=== PATIENT | male | born 1985 | race Caucasian/White ===

== ENCOUNTER 2021-10-29 23:53 | Emergency (ER) | payer MEDICAID ==
[2021-10-29 23:57] VITALS: BP 115/69; PULSE 100; RESP 20; TEMP 99.3
[2021-10-30] MEDS ORDERED: DEXAMETHASONE SOD PHOSPHATE 10 MG/ML 1 ML VIAL IM STA (00:59)
--- NOTE | 2021-10-30 01:03 | ED ---
URI HPI - General Chief Complaint: Upper Respiratory Infection Stated Complaint: Sore throat Time Seen by Provider: 10/30/21 00:32 Source: patient, RN notes reviewed Mode of arrival: ambulatory Limitations: no limitations - History of Present Illness Initial Comments: This is a pleasant 35-year-old male who presents emergency back sore throat, cough, body aches, and sensation shortness of breath which started on Thursday. Patient has been vaccinated against COVID-19 but not the most recent ferry and. Patient is been using [id number] antipyretics. POSITIVE body aches, mild headache, no fever or chills, no changes in vision or hearing, no difficulty with speech, no neck pain, no chest pain, no abdominal pain, no nausea or vomiting, no changes in urination or bowel movements, no numbness or tingling, no extremity pain, no skin rashes or lesions. Past medical, surgical, social, and family history reviewed. - Related Data Previous Rx's Medication Instructions Recorded Amoxicillin 500 mg PO Q8H #30 capsule 02/03/15 predniSONE [Deltasone] 20 mg PO BID #6 tab 02/03/15 traMADol HCl [Ultram] 50 - 100 mg PO Q6H PRN #15 tab 02/03/15 Albuterol Inhaler [Ventolin Hfa 2 puff INHALATION Q4HR PRN #1 each 10/30/21 Inhaler] predniSONE 50 mg PO DAILY #4 tab 10/30/21 Allergies Allergy/AdvReac Type Severity Reaction Status Date / Time No Known Allergies Allergy Verified 10/29/21 23:57 Review of Systems ROS Statement: Those systems with pertinent positive or pertinent negative responses have been documented in the HPI. ROS Other: All systems not noted in ROS Statement are negative. Past Medical History Past Medical History: No Reported History History of Any Multi-Drug Resistant Organisms: None Reported Past Surgical History: No Surgical Hx Reported Past Psychological History: No Psychological Hx Reported Smoking Status: Never smoker Past Alcohol Use History: Occasional Past Drug Use History: None Reported General Exam - General Exam Comments Initial Comments: Patient appears to be mildly ill but not toxic. No respiratory distress or accessory muscle use. Lungs are clear on auscultation. Vital signs stable, patient afebrile. Limitations: no limitations General appearance: alert, in no apparent distress Head exam: Present: atraumatic, normocephalic, normal inspection Eye exam: Present: normal appearance, PERRL, EOMI. Absent: scleral icterus, conjunctival injection, periorbital swelling ENT exam: Present: normal exam, normal oropharynx, mucous membranes moist, normal external ear exam. Absent: mucous membranes dry Neck exam: Present: normal inspection. Absent: tenderness, meningismus, lymphadenopathy Respiratory exam: Present: normal lung sounds bilaterally. Absent: respiratory distress, wheezes, rales, rhonchi, stridor, chest wall tenderness, accessory muscle use Cardiovascular Exam: Present: regular rate, normal rhythm, normal heart sounds. Absent: systolic murmur, diastolic murmur, rubs, gallop, clicks GI/Abdominal exam: Present: soft, normal bowel sounds. Absent: distended, tenderness, guarding, rebound, rigid Extremities exam: Present: normal inspection, full ROM, normal capillary refill. Absent: tenderness, pedal edema, joint swelling, calf tenderness Back exam: Present: normal inspection Neurological exam: Present: alert, oriented X3, CN II-XII intact Psychiatric exam: Present: normal affect, normal mood Skin exam: Present: warm, dry, intact, normal color. Absent: rash Course Vital Signs 10/29/21 23:55 Temperature 99.3 F Pulse Rate 100 Respiratory 20 Rate Blood Pressure 115/69 O2 Sat by Pulse 98 Oximetry - Reevaluation(s) Reevaluation #1: 10/30/21 02:04 Patient in no distress at discharge. No tachypnea. No respiratory distress. Patient vital signs are stable, patient afebrile. Medical Decision Making - Medical Decision Making Patient presents with symptomology consistent with viral upper respiratory infection with cough. Given the patient's symptomology, likely COVID-19. Other viral etiology such as rhinovirus are adenovirus or possible. Patient in no distress. Pulse oximetry 98% on room air. We'll treat with corticosteroids for the patient's cough which she states is quite severe. We'll obtain x-ray, plan for discharge Discussed likelihood of viral etiology with the patient. Patient had body aches, symptoms of upper respiratory infection. No respiratory distress. Chest x-ray was clear. We'll treat conservatively with [id number] medications. I did give him a course of corticosteroids to the patient as he states he has a fairly harsh cough. We discussed the possibility of false negative COVID-19 testing. Patient voiced understanding. Patient was told to return to the ER for any signs or symptoms worsen. Told to return immediately if any other problems arise. All questions answered. Treatment plan discussed. Patient in agreement Every effort has been made to ensure accuracy of this dictation. However, due to the limitations of electronic medical records and dictation devices, errors in charting still occur. Supervising Dr. Lopez - Lab Data Lab Results 10/30/21 Range/Units 01:03 Coronavirus (PCR) Not Detected (Not Detectd) Disposition Clinical Impression: Viral upper respiratory infection, Acute viral syndrome Disposition: HOME SELF-CARE Condition: Good Instructions (If sedation given, give patient instructions): Upper Respiratory Infection (ED), Viral Syndrome (ED) Additional Instructions: Alternate acetaminophen and ibuprofen every 4 hours for fever control and general discomfort. Follow-up with your regular physician as directed. Return to the ER immediately if any symptoms worsen, new symptoms arise, or any other problems develop. You can use the albuterol inhaler 2 puffs every 4 hours as needed for cough or shortness of breath. Prescriptions: predniSONE 50 mg PO DAILY #4 tab Albuterol Inhaler [Ventolin Hfa Inhaler] 2 puff INHALATION Q4HR PRN #1 each PRN Reason: Wheezing Is patient prescribed a controlled substance at d/c from ED?: No Referrals: Wolf Jackson MD [Primary Care Provider] - 1-2 days Time of Disposition: 01:49
--- NOTE | 2021-10-30 01:23 | XR ---
EXAMINATION TYPE: XR chest 1V portable DATE OF EXAM: 10/30/2021 COMPARISON: 03/17/2014 HISTORY: Chest pain TECHNIQUE: Single view FINDINGS: Heart and mediastinum are normal. Lungs are clear. Diaphragm is normal. Bony thorax is inta ct IMPRESSION: Normal chest. No change.
== END 2021-10-30 02:11 | disposition home or self-care (01) ==
LOC: EC 23:53
DX: J06.9 Acute upper respiratory infection, unspecified (principal); Z20.822 Contact with and (suspected) exposure to COVID-19; Z28.311 Partially vaccinated for COVID-19
CPT/HCPCS: 96372 ×2; 99285 ×2; 87635; 71045; J1100

== ENCOUNTER 2023-05-14 22:05 | Inpatient (IN) | payer MEDICAID ==
[2023-05-15 00:45] LABS: Appearance,Urine Clear (Clear); Bilirubin,Urine Negative (Negative); Blood,Urine Negative (Negative); Color,Urine Yellow; Glucose,Urine (UA) Negative (Negative); Ketones,Urine Negative (Negative); Leukocyte Esterase,Urine Negative (Negative); Nitrite,Urine Negative (Negative); PH, Urine 5.5 (5.0-8.0); Protein,Urine Trace (Negative); Specific Gravity,Urine 1.028 (1.001-1.035)
[2023-05-15] MEDS: SODIUM CHLORIDE 0.9% 1,000 ML IV STA (00:58)
[2023-05-15] MEDS: KETOROLAC 15 MG/ML 1 ML VIAL IVP STA (00:58)
[2023-05-15 01:07] LABS: Basophils % (A) 0 %; Eosinophils # (A) 0.2 k/uL (0-0.7); Eosinophils % (A) 1 %; HCT 42.1 % (39.0-53.0); HGB 14.1 gm/dL (13.0-17.5); Lymphocytes # (A) 1.5 k/uL (1.0-4.8); Lymphocytes % (A) 10 %; MCH 29.5 pg (25.0-35.0); MCHC 33.4 g/dL (31.0-37.0); MCV 88.4 fL (80.0-100.0); Mean Platelet Volume 7.6; Monocytes # (A) 0.9 k/uL (0-1.0); Monocytes % (A) 6 %; Neutrophils # (A) 12.5 k/uL (1.3-7.7); Neutrophils % (A) 81 %; Platelet Count 258 k/uL (150-450); RBC 4.77 m/uL (4.30-5.90); WBC 15.4 k/uL (3.8-10.6)
[2023-05-15 01:18] LABS: ALT 36 U/L (4-49); AST 33 U/L (17-59); African American GFR (CKD) >90 (>60 ml/min/1.73 sqM); Alkaline Phosphatase 138 U/L (38-126); Anion Gap 9 mmol/L; Blood Urea Nitrogen 15 mg/dL (9-20); Calcium 8.7 mg/dL (8.4-10.2); Carbon Dioxide 25 mmol/L (22-30); Chloride 101 mmol/L (98-107); Glucose 116 mg/dL (74-99); Non-African American GFR(CKD) 81 (>60 ml/min/1.73 sqM); Potassium 3.6 mmol/L (3.5-5.1); Sodium 135 mmol/L (137-145); Total Bilirubin 0.7 mg/dL (0.2-1.3); Total Protein 6.9 g/dL (6.3-8.2)
--- NOTE | 2023-05-15 01:27 | US ---
EXAMINATION TYPE: US scrotum with doppler. Grayscale and color Doppler Duplex imaging performed of yissel palafox scrotum. DATE OF EXAM: 05/15/2023 COMPARISON: NONE CLINICAL INDICATION: Male, 37 years old with history of swelling and pain; Pt states he attempted to pop a lump on his left scrotum. Swelling and severe pain after attempt EXAM MEASUREMENTS: TESTICLES: Right Testicle: 5.0 x 3.7 x 2.8 cm Left Testicle: 4.0 x 2.6 x 2.1 cm EPIDIDYMIS HEAD: Right Epididymis: 0.8 cm Left Epididymis: 0.8 cm Doppler performed to assess for testicular vascularity; good bilateral color flow and waveforms are s een. Presence of hydroceles: No Presence of varicoceles: Unable to assess due to pt being in too much pain Scrotal wall thickening and hypervascularity near area of lump and swelling waveforms from the testic le. No fluid collection seen. Comparison view at end of study shows symmetric blood flow bilaterally. IMPRESSION: Scrotal soft tissue infection or cellulitis is suspected. No well-formed fluid collection or abscess identified. Symmetric blood flow to both testicles noted.
[2023-05-15] MEDS ORDERED: VANCOMYCIN IV PER PHARMACY 1 EACH MISC MISCELLANE PRN (02:14)
[2023-05-15] MEDS: SODIUM CHLORIDE 0.9% 2,000 ML IV STA (02:14)
--- NOTE | 2023-05-15 02:20 | ED ---
General Adult HPI - General Chief complaint: Urogenital Stated complaint: groin pain Time Seen by Provider: 05/14/23 23:50 Source: patient Mode of arrival: ambulatory Limitations: no limitations - History of Present Illness Initial comments: 37-year-old male presenting to the ED with a chief complaint of scrotal swelling. Patient reports 2 to 3 days ago thought what he had was a pimple on his left scrotum and attempted to pop this. Reports that he has had gradual increases of pain and swelling since then and reports overnight it seems to tripled in size prompting presentation to the ED for further evaluation. Also does note some chills and subjective fever. Denies concerns for STDs. Denies urinary complaints. No abdominal pain. No changes in bowel habits. No chest pain or shortness of breath. No other complaints at this time. - Related Data Previous Rx's Medication Instructions Recorded Amoxicillin 500 mg PO Q8H #30 capsule 02/03/15 predniSONE [Deltasone] 20 mg PO BID #6 tab 02/03/15 traMADol HCl [Ultram] 50 - 100 mg PO Q6H PRN #15 tab 02/03/15 Albuterol Inhaler [Ventolin Hfa 2 puff INHALATION Q4HR PRN #1 each 10/30/21 Inhaler] predniSONE 50 mg PO DAILY #4 tab 10/30/21 Allergies Allergy/AdvReac Type Severity Reaction Status Date / Time No Known Allergies Allergy Verified 05/14/23 22:11 Review of Systems ROS Statement: Those systems with pertinent positive or pertinent negative responses have been documented in the HPI. ROS Other: All systems not noted in ROS Statement are negative. Past Medical History Past Medical History: No Reported History History of Any Multi-Drug Resistant Organisms: None Reported Past Surgical History: No Surgical Hx Reported Past Psychological History: No Psychological Hx Reported Smoking Status: Never smoker Past Alcohol Use History: Occasional Past Drug Use History: None Reported General Exam Limitations: no limitations General appearance: alert Eye exam: Present: normal appearance Neck exam: Present: normal inspection Respiratory exam: Present: normal lung sounds bilaterally Cardiovascular Exam: Present: tachycardia GI/Abdominal exam: Present: soft, normal bowel sounds. Absent: distended, tenderness, guarding, rebound, rigid exam: Present: other (Scrotal exam performed. There was no crepitus. The significant swelling of the scrotum with warmth and some erythema. Excoriation/scab to the left scrotum.) Neurological exam: Present: alert, oriented X3 Skin exam: Present: diaphoretic Course Vital Signs 05/14/23 05/14/23 05/15/23 22:07 23:22 00:31 Temperature 98.2 F Pulse Rate 123 H 119 H 117 H Respiratory 18 24 22 Rate Blood Pressure 118/76 140/93 132/80 O2 Sat by Pulse 100 100 100 Oximetry 05/15/23 05/15/23 01:00 02:21 Temperature 101.1 F H Pulse Rate 117 H 110 H Respiratory 20 18 Rate Blood Pressure 132/91 119/79 O2 Sat by Pulse 97 100 Oximetry Medical Decision Making - Medical Decision Making Was pt. sent in by a medical professional or institution ([facility], CASE LINER, urgent care, hospital, or detention...) When possible be specific @ -No Did you speak to anyone other than the patient for history (EMS, parent, family, police, friend...)? What history was obtained from this source @ -No Did you review nursing and triage notes (agree or disagree)? Why? @ -I reviewed and agree with nursing and triage notes Were old charts reviewed (outside hosp., previous admission, EMS record, old E KG, old radiological studies, urgent care reports/EKG's, detention records)? Report findings @ -No old charts were reviewed Differential Diagnosis (chest pain, altered mental status, abdominal pain women, abdominal pain men, vaginal bleeding, weakness, fever, dyspnea, syncope, headache, dizziness, GI bleed, back pain, seizure, CVA, palpatations, mental health, musculoskeletal)? @ -Differential Musculoskeletal Muscular strain, contusion, ligament sprain, fracture, arthritis, septic arthritis, bursitis, cellulitis, muscle spasm, nerve compression, DVT, arterial occlusion, herpes zoster, electrolyte abnormality, tumor.... This is not meant to be in all inclusive list EKG interpreted by me (3pts min.). @ -None X-rays interpreted by me (1pt min.). @ -None done CT interpreted by me (1pt min.). @ -None done U/S interpreted by me (1pt. min.). @ -Ultrasound interpreted me which showed some scrotal soft tissue infection with cellulitis suspected. No well-formed fluid collection or abscess identified. Symmetric blood flow to both testicles. What testing was considered but not performed or refused? (CT, X-rays, U/S, labs)? Why? @ -None What meds were considered but not given or refused? Why? @ -None Did you discuss the management of the patient with other professionals (professionals i.e. , PA, CASE LINER, lab, RT, psych nurse, social media sr strategy manager, claim investigator, teacher, probation officer, business case analyst)? Give summary @ -Case will be discussed with Dr. Shoemaker for consultation Case will be discussed with Dr. Purcell for admission Was smoking cessation discussed for >3mins.? @ -No Was critical care preformed (if so, how long)? @ -Yes, 35 minutes Were there social determinants of health that impacted care today? How? (Homelessness, low income, unemployed, alcoholism, drug addiction, tra nsportation, low edu. Level, literacy, decrease access to med. care, snf, rehab)? @ -No Was there de-escalation of care discussed even if they declined (Discuss DNR or withdrawal of care, Hospice)? DNR status @ -No What co-morbidities impacted this encounter? (DM, HTN, Smoking, COPD, CAD, Cancer, CVA, ARF, Chemo, Hep., AIDS, mental health diagnosis, sleep apnea, morbid obesity)? @ -None Was patient admitted / discharged? Hospital course, mention meds given and route, prescriptions, significant lab abnormalities, going to OR and other pertinent info. @ -Admission 37-year-old male presenting to the ED with complaints of scrotal swelling. On exam there is significant scrotal swelling with warmth and erythema concerning for infection. There was no crepitus upon palpation. Ultrasound did show findings concerning for soft tissue suspension. No fluid collection seen. No gas was mentioned on the ultrasound read. Laboratory studies reviewed. CBC significant for an elevation of white blood cell count at 15.4. Chemistry panel unremarkable. Urinalysis unremarkable. Patient met SIRS criteria at 00:59. Patient was given a liter bolus upon arrival. Patient also given an additional 2 L bolus with this. Antibiotics were ordered at 2:15 AM. Patient will be admitted secondary to this cellulitis with consult to urology. Blood cultures obtained. Undiagnosed new problem with uncertain prognosis? @ -No Drug Therapy requiring intensive monitoring for toxicity (Heparin, Nitro, Insulin, Cardizem)? @ -No Were any procedures done? @ -No Diagnosis/symptom? @ -Scrotal cellulitis, sepsis Acute, or Chronic, or Acute on Chronic? @ -Acute Uncomplicated (without systemic symptoms) or Complicated (systemic symptoms)? @ -Complicated Side effects of treatment? @ -No Exacerbation, Progression, or Severe Exacerbation? @ -No Poses a threat to life or bodily function? How? (Chest pain, USA, PA, pneumonia, PE, COPD, DKA, ARF, appy, cholecystitis, CVA, Diverticulitis, Homicidal, S uicidal, threat to staff... and all critical care pts) @ -No - Lab Data Result diagrams: 05/15/23 00:48 05/15/23 00:48 Lab Results 05/14/23 05/15/23 05/15/23 Range/Units 22:42 00:48 00:48 WBC 15.4 H (3.8-10.6) k/uL RBC 4.77 (4.30-5.90) m/uL Hgb 14.1 (13.0-17.5) gm/dL Hct 42.1 (39.0-53.0) % MCV 88.4 (80.0-100.0) fL MCH 29.5 (25.0-35.0) pg MCHC 33.4 (31.0-37.0) g/dL RDW 13.0 (11.5-15.5) % Plt Count 258 (150-450) k/uL MPV 7.6 Neutrophils % 81 % Lymphocytes % 10 % Monocytes % 6 % Eosinophils % 1 % Basophils % 0 % Neutrophils # 12.5 H (1.3-7.7) k/uL Lymphocytes # 1.5 (1.0-4.8) k/uL Monocytes # 0.9 (0-1.0) k/uL Eosinophils # 0.2 (0-0.7) k/uL Basophils # 0.0 (0-0.2) k/uL Sodium 135 L (137-145) mmol/L Potassium 3.6 (3.5-5.1) mmol/L Chloride 101 (98-107) mmol/L Carbon Dioxide 25 (22-30) mmol/L Anion Gap 9 mmol/L BUN 15 (9-20) mg/dL Creatinine 1.14 (0.66-1.25) mg/dL Est GFR (CKD-EPI)AfAm >90 (>60 ml/min/1.73 sqM) Est GFR (CKD-EPI)NonAf 81 (>60 ml/min/1.73 sqM) Glucose 116 H (74-99) mg/dL Calcium 8.7 (8.4-10.2) mg/dL Total Bilirubin 0.7 (0.2-1.3) mg/dL AST 33 (17-59) U/L ALT 36 (4-49) U/L Alkaline Phosphatase 138 H (38-126) U/L Total Protein 6.9 (6.3-8.2) g/dL Albumin 4.0 (3.5-5.0) g/dL Urine Color Yellow Urine Appearance Clear (Clear) Urine pH 5.5 (5.0-8.0) Ur Specific [place] 1.028 (1.001-1.035) Urine Protein Trace H (Negative) Urine Glucose (UA) Negative (Negative) Urine Ketones Negative (Negative) Urine Blood Negative (Negative) Urine Nitrite Negative (Negative) Urine Bilirubin Negative (Negative) Urine Urobilinogen 2.0 (<2.0) mg/dL Ur Leukocyte Esterase Negative (Negative) Disposition Clinical Impression: Cellulitis of scrotum Disposition: ADMITTED IP TO THIS HOSP Condition: Fair Referrals: Wolf Jackson MD [Primary Care Provider] - 1-2 days Time of Disposition: 02:31
[2023-05-15] MEDS: ACETAMINOPHEN TAB 500 MG TAB PO STA (02:23)
[2023-05-15] MEDS: ONDANSETRON 4 MG/2 ML VIAL IVP STA (02:25)
[2023-05-15] MEDS: MORPHINE SULFATE 4 MG/ML SYRINGE IVP STA (02:28)
[2023-05-15] MEDS: PIPERACILLIN-TAZOBACTAM 3.375 GM in SODIUM CHLORIDE 0.9% 100 ML IVPB STA (02:31)
[2023-05-15] MEDS ORDERED: IBUPROFEN 400 MG TAB PO PRN (02:32)
[2023-05-15] MEDS ORDERED: ONDANSETRON 4 MG/2 ML VIAL IVP PRN (02:32)
[2023-05-15] MEDS ORDERED: NALOXONE 0.4 MG/ML 1 ML VIAL IV PRN (02:32)
--- NOTE | 2023-05-15 02:59 | CT ---
EXAMINATION TYPE: CT pelvis w con DATE OF EXAM: 05/15/2023 COMPARISON: Same date scrotal ultrasound HISTORY: LEFT TESTICULAR PAIN, PATIENT HAD AN INGROWN HAIR/PIMPLE/MASS HE TRIED TO POP THAT HAS GROIN LARGER OVER TIME CT DLP: 1607.6 mGycm Automated exposure control for dose reduction was used. CONTRAST: Performed with IV Contrast, patient injected with 100 mL of Isovue 300. FINDINGS: Abnormal skin thickening and diffuse edema along the inferior aspect of the left scrotum correlates w ith ultrasound seen best coronal image 27. No thick walled fluid collection or drainable abscess. Lef t testicle slightly smaller than right testicle. Findings correlate with ultrasound measurements. Ernestine ticles remain well defined. Prostate gland is normal in size. Urinary bladder is unremarkable. Normal-appearing appendix from cec um is seen. No abnormal bowel dilatation. No free fluid in the pelvis. Visualized osseous structures are intact. IMPRESSION: As above.
[2023-05-15] MEDS: VANCOMYCIN 1,750 MG in SODIUM CHLORIDE 0.9% 500 ML 500 ML IVPB STA (04:47)
[2023-05-15] MEDS: SODIUM CHLORIDE 0.9% 1,000 ML IV SCH (04:47)
[2023-05-15] MEDS: HYDROmorphone 1 MG/ML 1 ML SYRINGE IVP PRN ×2 (07:10→20:53)
[2023-05-15 07:42] LABS: Glucose,Whole Blood 93 mg/dL (70-110)
[2023-05-15] MEDS: LACTATED RINGERS 1,000 ML IV ONE ×5 (08:00→10:01)
[2023-05-15 08:02] LABS: Basophils % (A) 0 %; Eosinophils % (A) 1 %; Lymphocytes # (A) 0.9 k/uL (1.0-4.8); Lymphocytes % (A) 14 %; MCH 29.4 pg (25.0-35.0); MCHC 32.5 g/dL (31.0-37.0); MCV 90.5 fL (80.0-100.0); Mean Platelet Volume 7.7; Monocytes # (A) 0.4 k/uL (0-1.0); Monocytes % (A) 7 %; Neutrophils # (A) 5.1 k/uL (1.3-7.7); Neutrophils % (A) 78 %; RDW 13.2 % (11.5-15.5)
[2023-05-15 08:08] LABS: INR 1.4 (<1.2); Prothrombin Time 14.9 sec (10.0-12.5)
[2023-05-15 08:11] LABS: African American GFR (CKD) >90 (>60 ml/min/1.73 sqM); Anion Gap 12 mmol/L; Blood Urea Nitrogen 7 mg/dL (9-20); Calcium 6.8 mg/dL (8.4-10.2); Carbon Dioxide 10 mmol/L (22-30); Chloride 107 mmol/L (98-107); Glucose 53 mg/dL (74-99); Non-African American GFR(CKD) >90 (>60 ml/min/1.73 sqM); Sodium 129 mmol/L (137-145)
[2023-05-15 08:30] LABS: Glucose,Whole Blood 81 mg/dL (70-110)
--- NOTE | 2023-05-15 08:36 | P.GSCN ---
History of Present Illness Consult date: 05/15/23 Reason for Consult: Left scrotal cellulitis History of present illness: This is a 37-year-old male that presented to the hospital with left-sided scrotal cellulitis that has been progressing over the past 24 hours. He initially noticed a small pimple in his scrotum which he opened up approximately 2 days ago following that he noticed swelling and erythema involving the scrotum that has progressively gotten worse. He indicated over the past 24 hours it has more than tripled in size. It is associated with significant amount of pain associated with fevers and chills. Denies any urinary symptoms. Denies any previous scrotal surgeries. In the ER he underwent CT pelvis that showed evidence of significant left scrotal edema, no appreciable abscess was seen. Review of Systems - Constitutional Reports chills, Reports fatigue, Reports fever, Reports malaise - Cardiovascular Denies chest pain, Denies shortness of breath - Respiratory Denies cough, Denies 7 - Gastrointestinal Reports as per HPI - Genitourinary Reports genital pain, Denies dysuria, Denies hematuria - Integumentary Denies rash, Denies unusual bruising - Neurological Denies headaches, Denies syncope Past Medical History Past Medical History: No Reported History History of Any Multi-Drug Resistant Organisms: None Reported Past Surgical History: No Surgical Hx Reported Past Psychological History: No Psychological Hx Reported Smoking Status: Never smoker Past Alcohol Use History: Occasional Past Drug Use History: None Reported Medications and Allergies Home Medications Medication Instructions Recorded Confirmed Type No Known Home Medications 05/15/23 05/15/23 History Allergies Allergy/AdvReac Type Severity Reaction Status Date / Time No Known Allergies Allergy Verified 05/15/23 07:46 Surgical - Exam Vital Signs Temp Pulse Resp BP Pulse Ox 98.2 F 123 H 18 118/76 100 05/14/23 22:07 05/14/23 22:07 05/14/23 22:07 05/14/23 22:07 05/14/23 22:07 - General no distress, moderate pain - Eyes normal ocular movement, no pale - ENT normal nares, normal mucosa - Respiratory normal expansion, normal respiratory effort - Abdomen Abdomen: soft, non tender - Genitourinary Significant left scrotal wall edema and tenderness, a focal area of necrotic tissue with fluctuance along the lateral aspect of the 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 No involvement of the penile tissue or abdominal tissue. Results - Labs 05/15/23 07:50 05/15/23 07:50 Abnormal Lab Results - Last 24 Hours (Table) 05/14/23 05/15/23 05/15/23 Range/Units 22:42 00:48 00:48 WBC 15.4 H (3.8-10.6) k/uL RBC (4.30-5.90) m/uL Hgb (13.0-17.5) gm/dL Hct (39.0-53.0) % Plt Count (150-450) k/uL Neutrophils # 12.5 H (1.3-7.7) k/uL PT (10.0-12.5) sec INR (<1.2) Sodium 135 L (137-145) mmol/L Carbon Dioxide (22-30) mmol/L BUN (9-20) mg/dL Creatinine (0.66-1.25) mg/dL Glucose 116 H (74-99) mg/dL Plasma Lactic Acid Sancho (0.7-2.0) mmol/L Calcium (8.4-10.2) mg/dL Alkaline Phosphatase 138 H (38-126) U/L Urine Protein Trace H (Negative) 05/15/23 05/15/23 05/15/23 Range/Units 07:50 07:50 07:50 WBC (3.8-10.6) k/uL RBC 2.53 L (4.30-5.90) m/uL Hgb 7.5 L D (13.0-17.5) gm/dL Hct 22.9 L (39.0-53.0) % Plt Count 129 L (150-450) k/uL Neutrophils # (1.3-7.7) k/uL PT 14.9 H (10.0-12.5) sec INR 1.4 H (<1.2) Sodium 129 L (137-145) mmol/L Carbon Dioxide 10 L (22-30) mmol/L BUN 7 L (9-20) mg/dL Creatinine 0.50 L (0.66-1.25) mg/dL Glucose 53 L (74-99) mg/dL Plasma Lactic Acid Sancho (0.7-2.0) mmol/L Calcium 6.8 L (8.4-10.2) mg/dL Alkaline Phosphatase (38-126) U/L Urine Protein (Negative) 05/15/23 Range/Units 07:50 WBC (3.8-10.6) k/uL RBC (4.30-5.90) m/uL Hgb (13.0-17.5) gm/dL Hct (39.0-53.0) % Plt Count (150-450) k/uL Neutrophils # (1.3-7.7) k/uL PT (10.0-12.5) sec INR (<1.2) Sodium (137-145) mmol/L Carbon Dioxide (22-30) mmol/L BUN (9-20) mg/dL Creatinine (0.66-1.25) mg/dL Glucose (74-99) mg/dL Plasma Lactic Acid Sancho 14.5 H* (0.7-2.0) mmol/L Calcium (8.4-10.2) mg/dL Alkaline Phosphatase (38-126) U/L Urine Protein (Negative) Diabetes panel 05/15/23 05/15/23 Range/Units 00:48 07:50 Sodium 135 L 129 L (137-145) mmol/L Potassium 3.6 4.0 (3.5-5.1) mmol/L Chloride 101 107 (98-107) mmol/L Carbon Dioxide 25 10 L (22-30) mmol/L BUN 15 7 L (9-20) mg/dL Creatinine 1.14 0.50 L (0.66-1.25) mg/dL Glucose 116 H 53 L (74-99) mg/dL Calcium 8.7 6.8 L (8.4-10.2) mg/dL AST 33 (17-59) U/L ALT 36 (4-49) U/L Alkaline Phosphatase 138 H (38-126) U/L Total Protein 6.9 (6.3-8.2) g/dL Albumin 4.0 (3.5-5.0) g/dL Calcium panel 05/15/23 05/15/23 Range/Units 00:48 07:50 Calcium 8.7 6.8 L (8.4-10.2) mg/dL Albumin 4.0 (3.5-5.0) g/dL Pituitary panel 05/15/23 05/15/23 Range/Units 00:48 07:50 Sodium 135 L 129 L (137-145) mmol/L Potassium 3.6 4.0 (3.5-5.1) mmol/L Chloride 101 107 (98-107) mmol/L Carbon Dioxide 25 10 L (22-30) mmol/L BUN 15 7 L (9-20) mg/dL Creatinine 1.14 0.50 L (0.66-1.25) mg/dL Glucose 116 H 53 L (74-99) mg/dL Calcium 8.7 6.8 L (8.4-10.2) mg/dL Adrenal panel 05/15/23 05/15/23 Range/Units 00:48 07:50 Sodium 135 L 129 L (137-145) mmol/L Potassium 3.6 4.0 (3.5-5.1) mmol/L Chloride 101 107 (98-107) mmol/L Carbon Dioxide 25 10 L (22-30) mmol/L BUN 15 7 L (9-20) mg/dL Creatinine 1.14 0.50 L (0.66-1.25) mg/dL Glucose 116 H 53 L (74-99) mg/dL Calcium 8.7 6.8 L (8.4-10.2) mg/dL Total Bilirubin 0.7 (0.2-1.3) mg/dL AST 33 (17-59) U/L ALT 36 (4-49) U/L Alkaline Phosphatase 138 H (38-126) U/L Total Protein 6.9 (6.3-8.2) g/dL Albumin 4.0 (3.5-5.0) g/dL Assessment and Plan Assessment: This is a 37-year-old male that presented to the hospital with significant left- sided scrotal swelling, and 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 Patient is febrile, tachycardic and elevated white count. Discussed discussed given the exam finding and his vital signs I do recommend proceeding to the OR with incision and drainage and debridement of the involved tissue. Risk benefit and rationale of the surgery was discussed with him and his in details -Keep n.p.o. -OR for left-sided scrotal wall debridement and incision and drainage of scrotal wall abscess
[2023-05-15] MEDS ORDERED: LIDOCAINE 1% INJ 10MG/ML (20 ML MDV) ONE (08:50)
[2023-05-15] MEDS ORDERED: PROPOFOL 10 MG/ML 20 ML VIAL IV ONE (08:50)
[2023-05-15] MEDS ORDERED: ETOMIDATE 2 MG/ML 10 ML VIAL ONE (08:50)
[2023-05-15] MEDS ORDERED: ROCURONIUM 10 MG/ML (5 ML VIAL) IV ONE (08:50)
[2023-05-15] MEDS ORDERED: KETAMINE HCL IN 0.9 % NACL 50 MG/5 ML SYRINGE ONE (08:50)
[2023-05-15] MEDS ORDERED: SUCCINYLCHOLINE CHLORIDE 200 MG/10 ML VIAL IV ONE (08:50)
[2023-05-15] MEDS ORDERED: MIDAZOLAM 2 MG/2 ML VIAL ONE (08:50)
[2023-05-15] MEDS ORDERED: fentaNYL (PF) 50 MCG/ML 2 ML AMP ONE (08:50)
[2023-05-15 09:25] LABS: HGB 7.5 gm/dL (13.0-17.5); RBC 2.53 m/uL (4.30-5.90); WBC 6.5 k/uL (3.8-10.6)
[2023-05-15 09:26] LABS: HCT 22.9 % (39.0-53.0); Platelet Count 129 k/uL (150-450)
[2023-05-15] MEDS: SODIUM CHLORIDE 0.9% 1,000 ML IV ONE (10:02)
[2023-05-15] MEDS: PIPERACILLIN-TAZOBACTAM 3.375 GM in SODIUM CHLORIDE 0.9% 100 ML IVPB SCH (10:36)
[2023-05-15 10:45] LABS: ABG Base Excess -1.6 mmol/L; ABG HCO3 24 mmol/L (21-25); ABG Oxygen Saturation 99.7 % (94-97); ABG PCO2 41 mmHg (35-45); ABG PH 7.37 (7.35-7.45); ABG PO2 214 mmHg (83-108); ABG TCO2 25 mmol/L (19-24); Allen Test Performed? Yes
--- NOTE | 2023-05-15 11:33 | XR ---
EXAMINATION TYPE: XR chest 1V portable DATE OF EXAM: 05/15/2023 10:34 AM CLINICAL INDICATION:Male, 37 years old with history of Tube placement; [facility] COMPARISON: Chest radiographs from 10/30/2021. TECHNIQUE: XR chest 1V portable Frontal view of the chest. FINDINGS: Lungs/Pleura: There is no evidence of pleural effusion, focal consolidation, or pneumothorax. Pulmonary vascularity: Unremarkable. Heart/mediastinum: Cardiomediastinal silhouette is unremarkable. Musculoskeletal: No acute osseous pathology. Other findings: None Lines/Tubes: Endotracheal tube with distal tip 3.3 cm above the chi. Nasogastric tube with its distal tip and side-port projecting under the diaphragm and projecting over the gastric lumen. Right internal jugular central venous catheter with distal tip at the cavoatrial junction. IMPRESSION: Line and tubes in appropriate position.
[2023-05-15] MEDS: ACETAMINOPHEN TAB 325 MG TAB PO PRN (11:45)
[2023-05-15 11:55] LABS: Appearance,Urine Clear (Clear); Bilirubin,Urine Negative (Negative); Blood,Urine Negative (Negative); Color,Urine Yellow; Glucose,Urine (UA) Negative (Negative); Ketones,Urine Negative (Negative); Leukocyte Esterase,Urine Negative (Negative); Nitrite,Urine Negative (Negative); Protein,Urine Negative (Negative); Specific Gravity,Urine 1.023 (1.001-1.035)
[2023-05-15 11:56] LABS: Glucose,Whole Blood 91 mg/dL (70-110)
[2023-05-15 11:57] LABS: Basophils % (A) 0 %; Eosinophils # (A) 0.1 k/uL (0-0.7); Eosinophils % (A) 1 %; HCT 34.2 % (39.0-53.0); Lymphocytes # (A) 1.7 k/uL (1.0-4.8); Lymphocytes % (A) 15 %; MCH 29.4 pg (25.0-35.0); MCHC 32.5 g/dL (31.0-37.0); MCV 90.4 fL (80.0-100.0); Mean Platelet Volume 7.9; Monocytes # (A) 0.6 k/uL (0-1.0); Monocytes % (A) 5 %; Neutrophils # (A) 8.7 k/uL (1.3-7.7); Neutrophils % (A) 78 %; RBC 3.79 m/uL (4.30-5.90); RDW 13.1 % (11.5-15.5); WBC 11.2 k/uL (3.8-10.6)
[2023-05-15 11:59] LABS: HGB 11.1 gm/dL (13.0-17.5); Platelet Count 194 k/uL (150-450)
[2023-05-15] MEDS: VANCOMYCIN 1,750 MG in SODIUM CHLORIDE 0.9% 500 ML 500 ML IVPB SCH (13:27)
--- NOTE | 2023-05-15 13:33 | P.OP ---
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 Discussed given the evidence of progression on exam I do recommend proceeding with surgical debridement in the OR. This was discussed with him and his in details. Patient was tachycardic, and febrile at time of taking him back to the OR. Discussed risk and benefit and rationale of doing the surgery with him in details. Discussed potential of needing additional debridements, and potentially eventual requiring further therapy. They understood all the risk and agreed to proceed Description of Procedure: Patient brought to the operating room, general anesthesia was induced. He was prepped and draped in sterile fashion placed in a dorsolithotomy position. Left scrotal was palpated and there was area of black necrotic tissue along the left scrotum that measured approximately 3 x 2 cm additionally at the remainder of the left scrotal wall was edematous and quite indurated. Next the necrotic was excised off, there was no evidence of bleeding after removing the necrotic area. Next tissue was resected down, the majority of the left scrotal wall skin was excised, and the medial aspect of the right scrotal wall was also excised. Excision was taken until healthy bleeding was encountered. There was no involvement of the penile skin, the pubic area or the rectum. Total area of resection was approximately 10 x 15 cm. Scrotal wall around the left testicle was removed but the testicle was covered with tunica vaginalis, as there was no involvement of the tunica vaginalis. Areas of bleeding were controlled with cautery. A 16 Ukrainian Armstrong was placed with return of clear urine. There was no involvement of the urethra or periurethral tic tissue, the wound was irrigated with sempulse glove printer. Kerlix was used to wrap around the left testicle, and the remainder of the incision. Patient was taken to the ICU in guarded but hemodynamically stable condition. Patient remained intubated
[2023-05-15] MEDS ORDERED: SODIUM FERRIC GLUCONAT-SUCROSE 125 MG in SODIUM CHLORIDE 0.9% 100 ML IVPB SCH (14:00)
--- NOTE | 2023-05-15 14:01 | P.HPIM ---
History of Present Illness H&P Date: 05/15/23 Chief Complaint: Scrotal swelling This is a 37-year-old patient, follows Dr. Calos Jackson. Pretty healthy and unremarkable past medical history. Patient presented to the ER with scrotal swelling. He reported to have 2 to 3 days ago what you thought was a pimple on his left scrotum and he attempted to pop it. It gradually became worse and pain swelling and overnight tripled in size. Is also had some complaint of fever and chills. Patient in the ER was given IV fluids IV Zosyn. And IV vancomycin. Patient is moved to the medical floor, where he was more septic. And taken to the OR. Black necrotic tissue along the left scrotum was noted. And the wall was edematous and indurated. It was excised. In the medial aspect of the right scrotal wall was also excised. The penis in the pubic area of the rectum was not involved. Total area resected was 10 x 15 cm. Scrotal wall around the left testicle was removed but testicle was covered with the tunica vaginalis. This was not involved. No involvement of the urethra or peritoneal utricle tissue. Patient was intubated in the OR. Then moved to the ICU. Received 5 L of fluid during the procedure. Currently intubated with FiO2 60 and a PEEP of 5. Patient's mother at the bedside. On IV propofol Review of systems: Patient intubated Social history: . Does not smoke or drink alcohol. Works as a [employer]. Physical examination: VITAL SIGNS: 101.1, 117, 20, 132 x 91, 97% room air overnight GENERAL: BMI 30.6, laying in bed intubated. EYES: Pupils equal. Conjunctiva luigi l. HEENT: External appearance of nose and ears normal, oral cavity grossly normal. NECK: JVD not raised; masses not palpable. HEART: First and second heart sounds are normal; no edema. LUNGS: Respiratory rate normal; clear to auscultation. ABDOMEN: Soft, nontender, liver spleen not palpable, no masses palpable. Dressing over the scrotum with the support. Armstrong catheter. PSYCH: Patient sedated l. MUSCULOSKELETAL:No Clubbing/cyanosis;muscles-grossly intact NEUROLOGICAL: Cranial nerves grossly intact; no facial asymmetry, power and sensation grossly intact. LYMPHATICS: No lymph nodes palpable in the axilla and neck INVESTIGATIONS, reviewed in the clinical context: May 15, 2023: White count 9.2 hemoglobin 11.1 platelets 194 May 15, 2023: White count 15.4 hemoglobin 14.1 platelets 258 potassium 3.6 creatinine 1.14 lactic acid 1.4 then went up to 14.5 Scrotum ultrasound scrotal soft tissue infection//suspected no obvious fluid filled collection. Pelvic CT: Testicles remain well-defined. Thickening of the left scrotal wall. Chest x-ray film personally reviewed by me-unremarkable Assessment plan: -Acute left scrotal skin necrosis resulting initially from a pimple that was popped by the patient 2 to 3 days prior to presentation. Resulting in necrotic tissue sepsis. Surgical excision of the infected tissue. IV vancomycin. IV Zosyn. -Acute respiratory failure requiring ventilator support -Lactic acidosis secondary to sepsis -Hyponatremia decreased oral intake -Acute postprocedure blood loss anemia expected from surgery. Reported of EBL of 200 cc. IV Ferrlecit Patient ICU. IV fluids. Intubated. Discussed with mother at the bedside. Nursing informed me that patient probably be taken back to the OR on Thursday again by Dr. Shoemaker. Past Medical History Past Medical History: No Reported History History of Any Multi-Drug Resistant Organisms: None Reported Past Surgical History: No Surgical Hx Reported Past Psychological History: No Psychological Hx Reported Smoking Status: Never smoker Past Alcohol Use History: Occasional Past Drug Use History: None Reported - Past Family History Father Family Medical History: No Reported History Mother Family Medical History: Cancer, Coronary Artery Disease (CAD), Thyroid Disorder Medications and Allergies Home Medications Medication Instructions Recorded Confirmed Type No Known Home Medications 05/15/23 05/15/23 History Allergies Allergy/AdvReac Type Severity Reaction Status Date / Time No Known Allergies Allergy Verified 05/15/23 07:46 Physical Exam Vitals: Vital Signs Temp Pulse Pulse Resp BP BP Pulse Ox 05/15/23 09:38 05/15/23 08:31 116 H 28 H 134/84 100 05/15/23 08:18 114 H 34 H 137/79 100 05/15/23 08:02 100.3 F H 110 H 16 133/74 100 05/15/23 07:30 100 20 110/60 98 05/15/23 05:13 101 H 16 104/54 95 05/15/23 03:00 101 F H 113 H 18 114/69 99 05/15/23 02:21 110 H 18 119/79 100 05/15/23 01:00 101.1 F H 117 H 20 132/91 97 05/15/23 00:31 117 H 22 132/80 100 05/14/23 23:22 119 H 24 140/93 100 05/14/23 22:07 98.2 F 123 H 18 118/76 100 FiO2 05/15/23 09:38 100 05/15/23 08:31 05/15/23 08:18 05/15/23 08:02 05/15/23 07:30 05/15/23 05:13 05/15/23 03:00 05/15/23 02:21 05/15/23 01:00 05/15/23 00:31 05/14/23 23:22 05/14/23 22:07 Intake and Output 05/14/23 05/15/23 05/15/23 22:59 06:59 14:59 Intake Total 5500 Output Total 700 Balance 4800 Intake: IV 5500 Output: Urine 500 Estimated Blood Loss 200 Other: Weight 113.852 kg Results CBC & Chem 7: 05/15/23 11:39 05/15/23 07:50 Labs: Abnormal Lab Results - Last 24 Hours (Table) 05/14/23 05/15/23 05/15/23 Range/Units 22:42 00:48 00:48 WBC 15.4 H (3.8-10.6) k/uL RBC (4.30-5.90) m/uL Hgb (13.0-17.5) gm/dL Hct (39.0-53.0) % Plt Count (150-450) k/uL Neutrophils # 12.5 H (1.3-7.7) k/uL Lymphocytes # (1.0-4.8) k/uL PT (10.0-12.5) sec INR (<1.2) Sodium 135 L (137-145) mmol/L Carbon Dioxide (22-30) mmol/L BUN (9-20) mg/dL Creatinine (0.66-1.25) mg/dL Glucose 116 H (74-99) mg/dL Plasma Lactic Acid Sancho (0.7-2.0) mmol/L Calcium (8.4-10.2) mg/dL Alkaline Phosphatase 138 H (38-126) U/L Urine Protein Trace H (Negative) 05/15/23 05/15/23 05/15/23 Range/Units 07:50 07:50 07:50 WBC (3.8-10.6) k/uL RBC 2.53 L (4.30-5.90) m/uL Hgb 7.5 L D (13.0-17.5) gm/dL Hct 22.9 L (39.0-53.0) % Plt Count 129 L (150-450) k/uL Neutrophils # (1.3-7.7) k/uL Lymphocytes # 0.9 L (1.0-4.8) k/uL PT 14.9 H (10.0-12.5) sec INR 1.4 H (<1.2) Sodium 129 L (137-145) mmol/L Carbon Dioxide 10 L (22-30) mmol/L BUN 7 L (9-20) mg/dL Creatinine 0.50 L (0.66-1.25) mg/dL Glucose 53 L (74-99) mg/dL Plasma Lactic Acid Sancho (0.7-2.0) mmol/L Calcium 6.8 L (8.4-10.2) mg/dL Alkaline Phosphatase (38-126) U/L Urine Protein (Negative) 05/15/23 Range/Units 07:50 WBC (3.8-10.6) k/uL RBC (4.30-5.90) m/uL Hgb (13.0-17.5) gm/dL Hct (39.0-53.0) % Plt Count (150-450) k/uL Neutrophils # (1.3-7.7) k/uL Lymphocytes # (1.0-4.8) k/uL PT (10.0-12.5) sec INR (<1.2) Sodium (137-145) mmol/L Carbon Dioxide (22-30) mmol/L BUN (9-20) mg/dL Creatinine (0.66-1.25) mg/dL Glucose (74-99) mg/dL Plasma Lactic Acid Sancho 14.5 H* (0.7-2.0) mmol/L Calcium (8.4-10.2) mg/dL Alkaline Phosphatase (38-126) U/L Urine Protein (Negative) Thrombosis Risk Factor Assmnt - Choose All That Apply Each Factor Represents 1 point: Minor surgery planned, Sepsis (< 1month) Other Risk Factors: Yes Thrombosis Risk Factor Assessment Total Risk Factor Score: 2 Thrombosis Risk Factor Assessment Level: Low Risk
--- NOTE | 2023-05-15 14:23 | P.CNPUL ---
History of Present Illness Consult date: 05/15/23 Requesting physician: Easton Shoemaker Reason for consult: other (Ventilator/critical care management) Chief complaint: Left scrotal pain and redness History of present illness: This is a 37-year-old male patient with no significant medical history. He presented here to the emergency room late last night with complaints of scrotal swelling. He reported a 2 to 3-day history of what he thought was a pimple on his left scrotum attempted to pop it. Since then he had increased swelling pain and developed some fever and chills. Scrotal ultrasound revealed soft tissue infection or cellulitis suspected. No well-formed fluid collection or abscess identified. CT scan of the pelvis revealed abnormal skin thickening and diffuse edema along the inferior aspect of the left scrotum. No thick walled fluid collection or drainable abscess. Left testicle slightly smaller than right. White count 11.2. Hemoglobin 11.1. Sodium 129. Potassium 4.0. Bicarb 10. BUN 7. Creatinine 0.53. Glucose 53. Initial lactic acid 14.5. He received 4- 1/2 L of fluid resuscitation and was initiated on vancomycin and Zosyn. He was seen and evaluated by urology who took the patient to surgery for surgical debridement of the left scrotal wall greater than 10 cm. 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 Following surgery he was taken to the intensive care unit and remained on the mechanical ventilator. Currently on assist-control mode at 18, tidal volume 550, FiO2 100% and a PEEP of 5. Initial blood gases revealed a PaO2 of 214. pCO2 of 41 and a pH of 7.37. His FiO2 was decreased to 60%. He is continued on normal saline at 130 MLS per hour. He is on propofol at 40 mcg/kg/min. He is continued on vancomycin and Zosyn. Review of Systems ROS unobtainable: due to endotracheal tube Past Medical History Past Medical History: No Reported History History of Any Multi-Drug Resistant Organisms: None Reported Past Surgical History: No Surgical Hx Reported Past Anesthesia/Blood Transfusion Reactions: No Reported Reaction, Unable to Obtain Past Psychological History: No Psychological Hx Reported Smoking Status: Never smoker Past Alcohol Use History: Occasional Past Drug Use History: None Reported - Past Family History Father Family Medical History: No Reported History Mother Family Medical History: Cancer, Coronary Artery Disease (CAD), Thyroid Disorder Medications and Allergies Home Medications Medication Instructions Recorded Confirmed Type No Known Home Medications 05/15/23 05/15/23 History Allergies Allergy/AdvReac Type Severity Reaction Status Date / Time No Known Allergies Allergy Verified 05/15/23 07:46 Physical Exam Vitals: Vital Signs Temp Pulse Pulse Resp BP BP Pulse Ox 05/15/23 13:30 99 18 98/59 99 05/15/23 13:00 100.1 F H 103 H 18 101/60 98 05/15/23 12:30 109 H 18 98/65 98 05/15/23 12:00 100.8 F H 111 H 18 94/53 100 05/15/23 11:30 113 H 14 107/58 100 05/15/23 11:00 122 H 18 128/76 99 05/15/23 10:47 05/15/23 10:30 100.3 F H 122 H 18 134/92 100 05/15/23 10:23 05/15/23 10:08 05/15/23 09:38 05/15/23 08:31 116 H 28 H 134/84 100 05/15/23 08:18 114 H 34 H 137/79 100 05/15/23 08:02 100.3 F H 110 H 16 133/74 100 05/15/23 07:30 100 20 110/60 98 05/15/23 05:13 101 H 16 104/54 95 05/15/23 03:00 101 F H 113 H 18 114/69 99 05/15/23 02:21 110 H 18 119/79 100 05/15/23 01:00 101.1 F H 117 H 20 132/91 97 05/15/23 00:31 117 H 22 132/80 100 05/14/23 23:22 119 H 24 140/93 100 05/14/23 22:07 98.2 F 123 H 18 118/76 100 FiO2 05/15/23 13:30 05/15/23 13:00 05/15/23 12:30 05/15/23 12:00 60 05/15/23 11:30 05/15/23 11:00 60 05/15/23 10:47 60 05/15/23 10:30 100 05/15/23 10:23 100 05/15/23 10:08 100 05/15/23 09:38 100 05/15/23 08:31 05/15/23 08:18 05/15/23 08:02 05/15/23 07:30 05/15/23 05:13 05/15/23 03:00 05/15/23 02:21 05/15/23 01:00 05/15/23 00:31 05/14/23 23:22 05/14/23 22:07 Intake and Output 05/14/23 05/15/23 05/15/23 22:59 06:59 14:59 Intake Total 6567.475 Output Total 1015 Balance 5552.475 Intake: IV 6490 0.9 390 Piperacillin-Tazobactam 3 100 .375 gm In Sodium Chloride 0.9% 100 ml @ 25 mls/hr IVPB Q8H JUVENAL Rx#: [id number] Vancomycin 1,750 mg In 500 Sodium Chloride 0.9% 500 ml 500 ml @ 167 mls/hr IVPB Q8H JUVENAL Rx#: [id number] Intake, IV Titration 77.475 Amount propofoL 1,000 mg In 77.475 Empty Bag 1 bag @ 15 MCG/ KG/MIN 10.247 mls/hr IV . Q9H46M JUVENAL Rx#:[id number] Output: Urine 815 Estimated Blood Loss 200 Other: Voiding Method Indwelling Catheter Weight 113.852 kg 113.852 kg GENERAL EXAM: Intubated, sedated 37-year-old male patient, comfortable in no apparent distress. HEAD: Normocephalic. EYES: Normal reaction of pupils, equal size. NOSE: Clear with pink turbinates. THROAT: No erythema or exudates. NECK: No masses, no JVD. CHEST: No chest wall deformity. LUNGS: Equal air entry with no crackles, wheeze, rhonchi or dullness. CVS: S1 and S2 normal with no audible murmur, regular rhythm. ABDOMEN: No hepatosplenomegaly, normal bowel sounds, no guarding or rigidity. SPINE: No scoliosis or deformity SKIN: Cellulitis/Ayala's gangrene of the left scrotum, post debridement. Packing and dressing dry and intact. CENTRAL NERVOUS SYSTEM: No focal deficits, tone is normal in all 4 extremities. EXTREMITIES: There is no peripheral edema. No clubbing, no cyanosis. Peripheral pulses are intact. Results - Laboratory Findings CBC and BMP: 05/15/23 11:39 05/15/23 07:50 ABG ABG pH 7.37 (7.35-7.45) 05/15/23 10:42 ABG pCO2 41 mmHg (35-45) 05/15/23 10:42 ABG pO2 214 mmHg (83-108) H 05/15/23 10:42 ABG O2 Saturation 99.7 % (94-97) H 05/15/23 10:42 PT/INR, D-dimer PT 14.9 sec (10.0-12.5) H 05/15/23 07:50 INR 1.4 (<1.2) H 05/15/23 07:50 Abnormal lab findings: Abnormal Labs 05/14/23 05/15/23 05/15/23 22:42 00:48 00:48 WBC 15.4 H RBC Hgb Hct Plt Count Neutrophils # 12.5 H Lymphocytes # PT INR ABG pO2 ABG Total CO2 ABG O2 Saturation Sodium 135 L Carbon Dioxide BUN Creatinine Glucose 116 H Plasma Lactic Acid Sancho Calcium Alkaline Phosphatase 138 H Urine Protein Trace H 05/15/23 05/15/23 05/15/23 07:50 07:50 07:50 WBC RBC 2.53 L Hgb 7.5 L D Hct 22.9 L Plt Count 129 L Neutrophils # Lymphocytes # 0.9 L PT 14.9 H INR 1.4 H ABG pO2 ABG Total CO2 ABG O2 Saturation Sodium 129 L Carbon Dioxide 10 L BUN 7 L Creatinine 0.50 L Glucose 53 L Plasma Lactic Acid Sancho Calcium 6.8 L Alkaline Phosphatase Urine Protein 05/15/23 05/15/23 05/15/23 07:50 10:42 11:39 WBC 11.2 H RBC 3.79 L Hgb 11.1 L D Hct 34.2 L Plt Count Neutrophils # 8.7 H Lymphocytes # PT INR ABG pO2 214 H ABG Total CO2 25 H ABG O2 Saturation 99.7 H Sodium Carbon Dioxide BUN Creatinine Glucose Plasma Lactic Acid Sancho 14.5 H* Calcium Alkaline Phosphatase Urine Protein - Diagnostic Findings Chest x-ray: image reviewed Assessment and Plan Assessment: Cellulitis/Ayala's gangrene of the left scrotum status post debridement today 05/15/2023. Postoperative day #0 Acute sepsis secondary to above initial lactic acid 14.5, currently 0.8 Plan: The patient was seen and evaluated CT scan, chest x-ray, labs, ABGs and medications reviewed Will plan for extubation today Continue vancomycin and Zosyn Add clindamycin Continue saline at 130 MLS per hour Lovenox for DVT prophylaxis May return to OR if needed on 05/17/2023 We will continue to monitor closely here in the intensive care unit I have personally seen and examined the patient, performed the documentation and the assessment and plan as written. Number of minutes spent on the visit: 20.
[2023-05-15 14:24] LABS: African American GFR (CKD) >90 (>60 ml/min/1.73 sqM); Anion Gap 5 mmol/L; Blood Urea Nitrogen 12 mg/dL (9-20); Calcium 7.4 mg/dL (8.4-10.2); Carbon Dioxide 22 mmol/L (22-30); Chloride 106 mmol/L (98-107); Glucose 107 mg/dL (74-99); Non-African American GFR(CKD) >90 (>60 ml/min/1.73 sqM); Potassium 3.5 mmol/L (3.5-5.1); Sodium 133 mmol/L (137-145)
[2023-05-15] MEDS: ENOXAPARIN 40 MG/0.4 ML SYRINGE SQ SCH (14:43)
[2023-05-15] MEDS: FAMOTIDINE 20 MG/2 ML VIAL IV SCH (14:43)
--- NOTE | 2023-05-15 14:49 | P.ANPRN ---
Procedure Note - Anesthesia - Invasive Line Right Central Line Time Out Performed: Yes (0850) Date of Procedure: 05/15/23 Time of Procedure: 08:51 Location of Patient: OR Preparation: Sterile Prep, Sterile Dressing Central Line Location: Internal Jugular (right IJ TLC) Ultrasound Used: Yes Purpose - Visualization and Identification of Vasculature: Yes Needle Guage: 18g angio Image Stored and Saved: Yes Narrative: Invasive line placement per sterile protocol utilized.
[2023-05-15] MEDS: CLINDAMYCIN 600 MG in DEXTROSE 5% IN WATER 50 ML IVPB SCH (15:12)
[2023-05-15] MEDS: SODIUM FERRIC GLUCONAT-SUCROSE 125 MG in SODIUM CHLORIDE 0.9% 100 ML IVPB SCH (15:51)
[2023-05-15 16:21] LABS: ABG Base Excess -1.8 mmol/L; ABG HCO3 24 mmol/L (21-25); ABG Oxygen Saturation 98.6 % (94-97); ABG PCO2 45 mmHg (35-45); ABG PH 7.34 (7.35-7.45); ABG PO2 102 mmHg (83-108); ABG TCO2 25 mmol/L (19-24); Allen Test Performed? Yes
[2023-05-15] MEDS ORDERED: VANCOMYCIN 1,750 MG in SODIUM CHLORIDE 0.9% 500 ML 500 ML IVPB SCH (17:00)
[2023-05-15] MEDS: LINEZOLID 600 MG in DEXTROSE/WATER 1 300ML.BAG IVPB SCH (20:08)
[2023-05-15] MEDS ORDERED: CHLORHEXIDINE GLUCONATE 15 ML CUP MUCOUS MEM SCH (21:00)
[2023-05-16 04:50] LABS: Basophils % (A) 0 %; Eosinophils # (A) 0.1 k/uL (0-0.7); Eosinophils % (A) 1 %; HCT 33.3 % (39.0-53.0); Lymphocytes # (A) 0.9 k/uL (1.0-4.8); Lymphocytes % (A) 9 %; MCH 29.9 pg (25.0-35.0); MCHC 33.1 g/dL (31.0-37.0); MCV 90.1 fL (80.0-100.0); Mean Platelet Volume 7.5; Monocytes # (A) 0.6 k/uL (0-1.0); Monocytes % (A) 6 %; Neutrophils # (A) 8.3 k/uL (1.3-7.7); Neutrophils % (A) 83 %; Platelet Count 207 k/uL (150-450); RBC 3.69 m/uL (4.30-5.90)
[2023-05-16 05:01] LABS: African American GFR (CKD) >90 (>60 ml/min/1.73 sqM); Anion Gap 5 mmol/L; Blood Urea Nitrogen 8 mg/dL (9-20); Calcium 7.9 mg/dL (8.4-10.2); Carbon Dioxide 23 mmol/L (22-30); Chloride 103 mmol/L (98-107); Glucose 103 mg/dL (74-99); Non-African American GFR(CKD) >90 (>60 ml/min/1.73 sqM); Sodium 131 mmol/L (137-145)
--- NOTE | 2023-05-16 07:58 | XR ---
EXAMINATION TYPE: XR chest 1V portable DATE OF EXAM: 05/16/2023 COMPARISON: 05/15/2023 HISTORY: Chest pain TECHNIQUE: Single frontal view of the chest is obtained. FINDINGS: Endotracheal tube and NG tube have been removed. Right IJ central venous line is unchanged. Basilar s trandy densities unchanged. No evidence of pneumothorax. The cardiac silhouette size is within normal limits. The osseous structures are intact. IMPRESSION: 1. Stable chest.
--- NOTE | 2023-05-16 09:25 | P.PN ---
Subjective Progress Note Date: 05/16/23 Principal diagnosis: Postop day 1 status post left scrotal debridement for Ayala's gangrene. Hemodynamically stable this morning. Wound tissue culture growing gram-positive cocci Objective - Vital Signs Vital signs: Vital Signs Temp 98.7 F 05/16/23 05:00 Pulse 92 05/16/23 07:00 Resp 15 05/16/23 07:00 BP 104/61 05/16/23 07:00 Pulse Ox 97 05/16/23 07:00 FiO2 40 05/15/23 16:15 Intake & Output 05/15/23 05/16/23 05/16/23 18:59 06:59 18:59 Intake Total 7415.747 2010 130 Output Total 1815 1200 100 Balance 5600.747 810 30 Weight 113.852 kg 131.5 kg Intake: IV 7290 1710 130 0.9 1040 1560 130 Clindamycin 600 mg In 50 50 Dextrose 5% in Water 50 ml @ 50 mls/hr IVPB Q8HR [facility]NAL Rx#:[id number] Piperacillin-Tazobactam 3 100 100 .375 gm In Sodium Chloride 0.9% 100 ml @ 25 mls/hr IVPB Q8H [facility]NAL Rx#: [id number] Sodium Ferric Gluconat- 100 Sucrose 125 mg In Sodium Chloride 0.9% 100 ml @ 100 mls/hr IVPB DAILY [facility]NAL Rx#:[id number] Vancomycin 1,750 mg In 500 Sodium Chloride 0.9% 500 ml 500 ml @ 167 mls/hr IVPB Q8H [facility]NAL Rx#: [id number] Intake, IV Titration 125.747 300 Amount Linezolid 600 mg In 300 Dextrose/Water 1 300ml. bag @ 150 mls/hr IVPB Q12HR [facility]NAL Rx#:[id number] propofoL 1,000 mg In 125.747 Empty Bag 1 bag @ 15 MCG/ KG/MIN 10.247 mls/hr IV . Q9H46M [facility]NAL Rx#:[id number] Output: Urine 1615 1200 100 Estimated Blood Loss 200 Other: Voiding Method Indwelling Catheter Indwelling Catheter - Constitutional General appearance: Present: no acute distress - Gastrointestinal General gastrointestinal: Present: soft. Absent: distended, tenderness - Genitourinary Genitourinary Comment(s): Wound clean, no additional necrotic tissue appreciated - Psychiatric Psychiatric: Present: A&O x's 3 - Labs CBC & Chem 7: 05/16/23 04:25 05/16/23 04:25 Labs: Abnormal Lab Results - Last 24 Hours (Table) 05/15/23 05/15/23 05/15/23 Range/Units 07:50 10:42 11:30 WBC (3.8-10.6) k/uL RBC 2.53 L (4.30-5.90) m/uL Hgb 7.5 L D (13.0-17.5) gm/dL Hct 22.9 L (39.0-53.0) % Plt Count 129 L (150-450) k/uL Neutrophils # (1.3-7.7) k/uL Lymphocytes # (1.0-4.8) k/uL ABG pH (7.35-7.45) ABG pO2 214 H (83-108) mmHg ABG Total CO2 25 H (19-24) mmol/L ABG O2 Saturation 99.7 H (94-97) % Sodium 133 L (137-145) mmol/L BUN (9-20) mg/dL Glucose 107 H (74-99) mg/dL Calcium 7.4 L (8.4-10.2) mg/dL 05/15/23 05/15/23 05/16/23 Range/Units 11:39 16:18 04:25 WBC 11.2 H (3.8-10.6) k/uL RBC 3.79 L 3.69 L (4.30-5.90) m/uL Hgb 11.1 L D 11.0 L (13.0-17.5) gm/dL Hct 34.2 L 33.3 L (39.0-53.0) % Plt Count (150-450) k/uL Neutrophils # 8.7 H 8.3 H (1.3-7.7) k/uL Lymphocytes # 0.9 L (1.0-4.8) k/uL ABG pH 7.34 L (7.35-7.45) ABG pO2 (83-108) mmHg ABG Total CO2 25 H (19-24) mmol/L ABG O2 Saturation 98.6 H (94-97) % Sodium (137-145) mmol/L BUN (9-20) mg/dL Glucose (74-99) mg/dL Calcium (8.4-10.2) mg/dL 05/16/23 Range/Units 04:25 WBC (3.8-10.6) k/uL RBC (4.30-5.90) m/uL Hgb (13.0-17.5) gm/dL Hct (39.0-53.0) % Plt Count (150-450) k/uL Neutrophils # (1.3-7.7) k/uL Lymphocytes # (1.0-4.8) k/uL ABG pH (7.35-7.45) ABG pO2 (83-108) mmHg ABG Total CO2 (19-24) mmol/L ABG O2 Saturation (94-97) % Sodium 131 L (137-145) mmol/L BUN 8 L (9-20) mg/dL Glucose 103 H (74-99) mg/dL Calcium 7.9 L (8.4-10.2) mg/dL Microbiology - Last 24 Hours (Table) 05/15/23 09:30 Gram Stain - Preliminary Groin 05/15/23 09:30 Gram Stain - Preliminary Scrotum Assessment and Plan Assessment: This is a 37-year-old male that presented to the hospital with significant left- sided scrotal Ayala's gangrene, on presentation patient was febrile tachycar dic and lactate was 14 patient patient was taken emergently to the OR for left scrotal wall debridement. Postoperatively he has improved. Discussed the plan will be to taken to the OR tomorrow for dressing change, and washout. At the same time we will attempt to cover the left testicle as currently it is exposed. -Keep n.p.o past MN -Will add Toradol for pain -OR tomorrow for left scrotal wall washout, possible debridement, dressing change
[2023-05-16] MEDS: KETOROLAC 15 MG/ML 1 ML VIAL IVP SCH (11:33)
--- NOTE | 2023-05-16 11:49 | P.PN ---
Subjective Progress Note Date: 05/16/23 This is a 37-year-old male patient with no significant medical history. He presented here to the emergency room late last night with complaints of scrotal swelling. He reported a 2 to 3-day history of what he thought was a pimple on his left scrotum attempted to pop it. Since then he had increased swelling pain and developed some fever and chills. Scrotal ultrasound revealed soft tissue infection or cellulitis suspected. No well-formed fluid collection or abscess identified. CT scan of the pelvis revealed abnormal skin thickening and diffuse edema along the inferior aspect of the left scrotum. No thick walled fluid collection or drainable abscess. Left testicle slightly smaller than right. White count 11.2. Hemoglobin 11.1. Sodium 129. Potassium 4.0. Bicarb 10. BUN 7. Creatinine 0.53. Glucose 53. Initial lactic acid 14.5. He received 4- 1/2 L of fluid resuscitation and was initiated on vancomycin and Zosyn. He was seen and evaluated by urology who took the patient to surgery for surgical debridement of the left scrotal wall greater than 10 cm. 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 Following surgery he was taken to the intensive care unit and remained on the mechanical ventilator. Currently on assist-control mode at 18, tidal volume 550, FiO2 100% and a PEEP of 5. Initial blood gases revealed a PaO2 of 214. pCO2 of 41 and a pH of 7.37. His FiO2 was decreased to 60%. He is continued on normal saline at 130 MLS per hour. He is on propofol at 40 mcg/kg/min. He is continued on vancomycin and Zosyn. The patient is seen today May 16, 2023 in follow-up in the intensive care unit. He was successfully extubated yesterday. He is currently awake and alert in no acute distress. He is maintaining good O2 saturations in the upper 90s on 2 L/min per nasal cannula. He is afebrile. Hemodynamically stable. Chest x-ray shows no acute pulmonary process. No evidence of pneumothorax. He has normal saline at 130 MLS per hour. Urology is planning to perform further debridement tomorrow morning. Cultures from the scrotum are revealing presumptive Staph aureus. He is continued on Zyvox, clindamycin and Zosyn. White count 10.0. Hemoglobin 11.0. Platelets 207. Sodium 131. Potassium 4.0. Bicarb 23. BUN 8. Creatinine 0.95. Glucose 103. Uncontrolled with Dilaudid and Toradol. Lovenox for DVT prophylaxis. Pepcid for GI prophylaxis Objective - Vital Signs Vital signs: Vital Signs Temp 97.7 F 05/16/23 08:00 Pulse 80 05/16/23 09:00 Resp 13 05/16/23 10:00 BP 107/68 05/16/23 10:00 Pulse Ox 97 05/16/23 10:00 FiO2 40 05/15/23 16:15 Intake & Output 05/15/23 05/16/23 05/16/23 18:59 06:59 18:59 Intake Total 7415.747 2010 465 Output Total 1815 1200 450 Balance 5600.747 810 15 Weight 113.852 kg 131.5 kg Intake: IV 7290 1710 465 0.9 1040 1560 465 Clindamycin 600 mg In 50 50 Dextrose 5% in Water 50 ml @ 50 mls/hr IVPB Q8HR [facility] Rx#:[id number] Piperacillin-Tazobactam 3 100 100 .375 gm In Sodium Chloride 0.9% 100 ml @ 25 mls/hr IVPB Q8H [facility] Rx#: [id number] Sodium Ferric Gluconat- 100 Sucrose 125 mg In Sodium Chloride 0.9% 100 ml @ 100 mls/hr IVPB DAILY [facility] Rx#:[id number] Vancomycin 1,750 mg In 500 Sodium Chloride 0.9% 500 ml 500 ml @ 167 mls/hr IVPB Q8H [facility] Rx#: [id number] Intake, IV Titration 125.747 300 Amount Linezolid 600 mg In 300 Dextrose/Water 1 300ml. bag @ 150 mls/hr IVPB Q12HR [facility] Rx#:[id number] propofoL 1,000 mg In 125.747 Empty Bag 1 bag @ 15 MCG/ KG/MIN 10.247 mls/hr IV . [id number] [facility] Rx#:[id number] Output: Urine 1615 1200 450 Estimated Blood Loss 200 Other: Voiding Method Indwelling Catheter Indwelling Catheter Indwelling Catheter - Exam GENERAL EXAM: Alert, pleasant 37-year-old male patient, on 2 L nasal cannula, fairly comfortable in no apparent distress. HEAD: Normocephalic. EYES: Normal reaction of pupils, equal size. NOSE: Clear with pink turbinates. THROAT: No erythema or exudates. NECK: No masses, no JVD. CHEST: No chest wall deformity. LUNGS: Equal air entry with no crackles, wheeze, rhonchi or dullness. CVS: S1 and S2 normal with no audible murmur, regular rhythm. ABDOMEN: No hepatosplenomegaly, normal bowel sounds, no guarding or rigidity. SPINE: No scoliosis or deformity SKIN: Scrotal wound is clean with no additional necrotic tissue noted. CENTRAL NERVOUS SYSTEM: No focal deficits, tone is normal in all 4 extremities. EXTREMITIES: There is no peripheral edema. No clubbing, no cyanosis. Peripheral pulses are intact. - Labs CBC & Chem 7: 05/16/23 04:25 05/16/23 04:25 Labs: Abnormal Lab Results - Last 24 Hours (Table) 05/15/23 05/15/23 05/15/23 Range/Units 11:30 11:39 16:18 WBC 11.2 H (3.8-10.6) k/uL RBC 3.79 L (4.30-5.90) m/uL Hgb 11.1 L D (13.0-17.5) gm/dL Hct 34.2 L (39.0-53.0) % Neutrophils # 8.7 H (1.3-7.7) k/uL Lymphocytes # (1.0-4.8) k/uL ABG pH 7.34 L (7.35-7.45) ABG Total CO2 25 H (19-24) mmol/L ABG O2 Saturation 98.6 H (94-97) % Sodium 133 L (137-145) mmol/L BUN (9-20) mg/dL Glucose 107 H (74-99) mg/dL Calcium 7.4 L (8.4-10.2) mg/dL 05/16/23 05/16/23 Range/Units 04:25 04:25 WBC (3.8-10.6) k/uL RBC 3.69 L (4.30-5.90) m/uL Hgb 11.0 L (13.0-17.5) gm/dL Hct 33.3 L (39.0-53.0) % Neutrophils # 8.3 H (1.3-7.7) k/uL Lymphocytes # 0.9 L (1.0-4.8) k/uL ABG pH (7.35-7.45) ABG Total CO2 (19-24) mmol/L ABG O2 Saturation (94-97) % Sodium 131 L (137-145) mmol/L BUN 8 L (9-20) mg/dL Glucose 103 H (74-99) mg/dL Calcium 7.9 L (8.4-10.2) mg/dL Microbiology - Last 24 Hours (Table) 05/15/23 09:30 Gram Stain - Preliminary Scrotum Tissue Culture - Preliminary Presumptive Staph aureus 05/15/23 09:30 Gram Stain - Preliminary Groin Assessment and Plan Assessment: Cellulitis/Ayala's gangrene of the left scrotum status post debridement today 05/15/2023. Postoperative day #1. Sugars showing presumptive MRSA Acute sepsis secondary to above initial lactic acid 14.5, currently 0.8 Plan: The patient was seen and evaluated Chest x-ray, labs, and medications reviewed Currently stable on 2 L nasal cannula Continue Zyvox, clindamycin and Zosyn Decrease saline to 75 MLS per hour Lovenox for DVT prophylaxis May return to OR on 05/17/2023 per urology We will continue to follow I have personally seen and examined the patient, performed the documentation and the assessment and plan as written. Number of minutes spent on the visit: 10.
[2023-05-16] MEDS ORDERED: VANCOMYCIN TROUGH DUE 1 EACH MISC MISCELLANE ONE (12:00)
--- NOTE | 2023-05-16 14:28 | P.PN ---
Progress Note - Text Progress Note Date: 05/16/23 Chief Complaint: Scrotal swelling This is a 37-year-old patient, follows Dr. Calos Jackson. Pretty healthy and unremarkable past medical history. Patient presented to the ER with scrotal swelling. He reported to have 2 to 3 days ago what you thought was a pimple on his left scrotum and he attempted to pop it. It gradually became worse and pain swelling and overnight tripled in size. Is also had some complaint of fever and chills. Patient in the ER was given IV fluids IV Zosyn. And IV vancomycin. Patient is moved to the medical floor, where he was more septic. And taken to the OR. Black necrotic tissue along the left scrotum was noted. And the wall was edematous and indurated. It was excised. In the medial aspect of the right scrotal wall was also excised. The penis in the pubic area of the rectum was not involved. Total area resected was 10 x 15 cm. Scrotal wall around the left testicle was removed but testicle was covered with the tunica vaginalis. This was not involved. No involvement of the urethra or peritoneal utricle tissue. Patient was intubated in the OR. Then moved to the ICU. Received 5 L of fluid during the procedure. Currently intubated with FiO2 60 and a PEEP of 5. Patient's mother at the bedside. On IV propofol May 15: ICU. Patient extubated yesterday. Laying in bed. Comfortable. Tolerated diet. Armstrong catheter in place. Family at the bedside. IV Zosyn IV linezolid IV clindamycin. Some pain at the operative site. Due to go back to the OR tomorrow. For closure of wound.. Questions answered. Patient does shave his groin area and testicle. He also was swimming in [place] prior to coming in. Preventive measures discussed. Active Medications Acetaminophen (Acetaminophen Tab 325 Mg Tab) 650 mg PO Q6HR PRN PRN Reason: Mild Pain or Fever > 100.5 Last Admin: 05/16/23 08:10 Dose: 650 mg Enoxaparin Sodium (Enoxaparin 40 Mg/0.4 Ml Syringe) 40 mg SQ DAILY [facility] Last Admin: 05/16/23 08:03 Dose: 40 mg Famotidine (Famotidine 20 Mg/2 Ml Vial) 20 mg IV Q12HR [facility] Last Admin: 05/16/23 08:03 Dose: 20 mg Hydromorphone HCl (Hydromorphone 0.5 Mg/0.5 Ml Syringe) 0.5 mg IVP Q3HR PRN PRN Reason: Moderate Pain (Scale 4 to 6) Hydromorphone HCl (Hydromorphone 1 Mg/Ml 1 Ml Syringe) 1 mg IVP Q2HR PRN PRN Reason: Severe Pain (Scale 7 to 10) Last Admin: 05/16/23 14:21 Dose: 1 mg Piperacillin Sod/Tazobactam (Sod 3.375 gm/ Sodium Chloride) 100 mls @ 25 mls/hr IVPB Q8H [facility]; Protocol Last Admin: 05/16/23 10:35 Dose: 25 mls/hr Sodium Chloride (Saline 0.9%) 1,000 mls @ 75 mls/hr IV .[id number] [facility] Last Admin: 05/16/23 09:52 Dose: Not Given Clindamycin Phosphate 600 mg/ (Dextrose/Water) 54 mls @ 50 mls/hr IVPB Q8HR [facility]; Protocol Last Admin: 05/16/23 07:56 Dose: 50 mls/hr Linezolid 600 mg/ IV Solution 300 mls @ 150 mls/hr IVPB Q12HR [facility]; Protocol Last Admin: 05/16/23 08:07 Dose: 150 mls/hr Ketorolac Tromethamine (Ketorolac 15 Mg/Ml 1 Ml Vial) 15 mg IVP Q6HR [facility] Stop: 05/21/23 09:02 Last Admin: 05/16/23 11:33 Dose: 15 mg Naloxone HCl (Naloxone 0.4 Mg/Ml 1 Ml Vial) 0.2 mg IV Q2M PRN PRN Reason: Opioid Reversal Ondansetron HCl (Ondansetron 4 Mg/2 Ml Vial) 4 mg IVP Q8HR PRN PRN Reason: Nausea And Vomiting Social history: . Does not smoke or drink alcohol. Works as a [employer]. Physical examination: VITAL SIGNS: 98.1, 87, 12, 1 one 1 x 71, 98% 2 L GENERAL: Laying in bed, comfortable EYES: Pupils equal. Conjunctiva luigi l. HEENT: External appearance of nose and ears normal, oral cavity grossly normal. NECK: JVD not raised; masses not palpable. HEART: First and second heart sounds are normal; no edema. LUNGS: Respiratory rate normal; clear to auscultation. ABDOMEN: Soft, nontender, liver spleen not palpable, no masses palpable. Dressing over the scrotum with the support. Armstrong catheter. PSYCH: AOx3, mood affect normal. INVESTIGATIONS, reviewed in the clinical context: May 15: White count 10 hemoglobin 11 platelets 2 7 potassium 4 creatinine 0.95 May 15, 2023: White count 9.2 hemoglobin 11.1 platelets 194 May 15, 2023: White count 15.4 hemoglobin 14.1 platelets 258 potassium 3.6 creatinine 1.14 lactic acid 1.4 then went up to 14.5 Scrotum ultrasound scrotal soft tissue infection//suspected no obvious fluid filled collection. Pelvic CT: Testicles remain well-defined. Thickening of the left scrotal wall. Chest x-ray film personally reviewed by me-unremarkable Assessment plan: -Acute left scrotal skin necrosis resulting initially from a pimple that was popped by the patient 2 to 3 days prior to presentation. Resulting in necrotic tissue sepsis. Surgical excision of the infected tissue. Wound cultures growing presumptive Staph aureus Currently wound is open. Plan for patient to go back to the OR tomorrow for closure of the wound. IV vancomycin. IV Zosyn. IV clindamycin. -Acute respiratory failure requiring ventilator support: Extubated -Lactic acidosis secondary to sepsis -Hyponatremia decreased oral intake -Acute postprocedure blood loss anemia expected from surgery. Reported of EBL of 200 cc. IV Ferrlecit Continue with current antibiotics. Cultures are growing presumptive Staph aureus. Past Medical History Past Medical History: No Reported History History of Any Multi-Drug Resistant Organisms: None Reported Past Surgical History: No Surgical Hx Reported Past Psychological History: No Psychological Hx Reported Smoking Status: Never smoker Past Alcohol Use History: Occasional Past Drug Use History: None Reported
[2023-05-17] MEDS: diphenhydrAMINE 25 MG CAP PO STA (03:09)
[2023-05-17 05:03] LABS: Basophils % (A) 0 %; Eosinophils # (A) 0.1 k/uL (0-0.7); Eosinophils % (A) 1 %; HCT 31.1 % (39.0-53.0); HGB 10.4 gm/dL (13.0-17.5); Lymphocytes # (A) 0.9 k/uL (1.0-4.8); Lymphocytes % (A) 13 %; MCH 29.7 pg (25.0-35.0); MCHC 33.4 g/dL (31.0-37.0); Mean Platelet Volume 7.5; Monocytes # (A) 0.4 k/uL (0-1.0); Monocytes % (A) 6 %; Neutrophils # (A) 5.3 k/uL (1.3-7.7); Neutrophils % (A) 77 %; Platelet Count 210 k/uL (150-450); RBC 3.49 m/uL (4.30-5.90); RDW 12.8 % (11.5-15.5); WBC 6.8 k/uL (3.8-10.6)
[2023-05-17 05:16] LABS: African American GFR (CKD) >90 (>60 ml/min/1.73 sqM); Anion Gap 3 mmol/L; Blood Urea Nitrogen 6 mg/dL (9-20); Calcium 7.7 mg/dL (8.4-10.2); Carbon Dioxide 25 mmol/L (22-30); Chloride 104 mmol/L (98-107); Glucose 117 mg/dL (74-99); Non-African American GFR(CKD) >90 (>60 ml/min/1.73 sqM); Potassium 3.9 mmol/L (3.5-5.1); Sodium 132 mmol/L (137-145)
[2023-05-17] MEDS ORDERED: PROPOFOL 10 MG/ML 20 ML VIAL IV ONE (10:36)
[2023-05-17] MEDS ORDERED: MIDAZOLAM 2 MG/2 ML VIAL ONE (10:36)
[2023-05-17] MEDS: SODIUM CHLORIDE 0.9% 1,000 ML IV ONE (10:36)
[2023-05-17] MEDS ORDERED: fentaNYL (PF) 50 MCG/ML 2 ML AMP ONE (10:36)
[2023-05-17] MEDS ORDERED: LIDOCAINE 1% INJ 10MG/ML (20 ML MDV) ONE (10:36)
[2023-05-17] MEDS ORDERED: SUCCINYLCHOLINE CHLORIDE 200 MG/10 ML VIAL IV ONE (10:36)
--- NOTE | 2023-05-17 10:43 | P.PN ---
Subjective No acute overnight event, hemodynamically stable. Continues to have pain around the debridement site Objective - Vital Signs Vital signs: Vital Signs Temp 98.2 F 05/17/23 08:00 Pulse 73 05/17/23 09:00 Resp 13 05/17/23 09:00 BP 98/68 05/17/23 09:00 Pulse Ox 93 L 05/17/23 09:00 FiO2 40 05/15/23 16:15 Intake & Output 05/16/23 05/17/23 05/17/23 18:59 06:59 18:59 Intake Total 1665 1990 650 Output Total 2034 2225 360 Balance -370 -235 290 Weight 125.6 kg Intake: IV 1665 1450 650 0.9 1065 900 300 Clindamycin 600 mg In 100 50 50 Dextrose 5% in Water 50 ml @ 50 mls/hr IVPB Q8HR [facility] Rx#:[id number] Linezolid 600 mg In 300 300 300 Dextrose/Water 1 300ml. bag @ 150 mls/hr IVPB Q12HR [facility] Rx#:[id number] Piperacillin-Tazobactam 3 100 200 .375 gm In Sodium Chloride 0.9% 100 ml @ 25 mls/hr IVPB Q8H [facility] Rx#: [id number] Sodium Ferric Gluconat- 100 Sucrose 125 mg In Sodium Chloride 0.9% 100 ml @ 100 mls/hr IVPB DAILY [facility] Rx#:[id number] Oral 540 Output: Urine 2034 2225 360 Other: Voiding Method Indwelling Catheter Indwelling Catheter Indwelling Catheter - Constitutional General appearance: Present: no acute distress - Labs CBC & Chem 7: 05/17/23 04:13 05/17/23 04:13 Labs: Abnormal Lab Results - Last 24 Hours (Table) 05/17/23 05/17/23 Range/Units 04:13 04:13 RBC 3.49 L (4.30-5.90) m/uL Hgb 10.4 L (13.0-17.5) gm/dL Hct 31.1 L (39.0-53.0) % Lymphocytes # 0.9 L (1.0-4.8) k/uL Sodium 132 L (137-145) mmol/L BUN 6 L (9-20) mg/dL Glucose 117 H (74-99) mg/dL Calcium 7.7 L (8.4-10.2) mg/dL Microbiology - Last 24 Hours (Table) 05/15/23 15:45 Gram Stain - Final Sputum Sputum Culture - Final 05/15/23 09:30 Anaerobic Culture - Final Groin 05/15/23 02:30 Blood Culture - Preliminary Blood 05/15/23 02:15 Blood Culture - Preliminary Blood 05/15/23 09:30 Gram Stain - Preliminary Scrotum Tissue Culture - Preliminary Presumptive Staph aureus 05/15/23 09:30 Gram Stain - Preliminary Groin Assessment and Plan Assessment: This is a 37-year-old male that presented to the hospital with significant left- sided scrotal Ayala's gangrene, on presentation patient was febrile tachycardic and lactate was 14 patient patient was taken emergently to the OR for left scrotal wall debridement. Postoperatively he has improved. -Keep n.p.o for today's procedure -Will add Toradol for pain -OR for left scrotal wall washout, possible debridement, dressing change, will also attempt to partially cover the exposed left testicle
--- NOTE | 2023-05-17 10:46 | P.PN ---
Subjective Progress Note Date: 05/17/23 This is a 37-year-old male patient with no significant medical history. He presented here to the emergency room late last night with complaints of scrotal swelling. He reported a 2 to 3-day history of what he thought was a pimple on his left scrotum attempted to pop it. Since then he had increased swelling pain and developed some fever and chills. Scrotal ultrasound revealed soft tissue infection or cellulitis suspected. No well-formed fluid collection or abscess identified. CT scan of the pelvis revealed abnormal skin thickening and diffuse edema along the inferior aspect of the left scrotum. No thick walled fluid collection or drainable abscess. Left testicle slightly smaller than right. White count 11.2. Hemoglobin 11.1. Sodium 129. Potassium 4.0. Bicarb 10. BUN 7. Creatinine 0.53. Glucose 53. Initial lactic acid 14.5. He received 4- 1/2 L of fluid resuscitation and was initiated on vancomycin and Zosyn. He was seen and evaluated by urology who took the patient to surgery for surgical debridement of the left scrotal wall greater than 10 cm. 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 Following surgery he was taken to the intensive care unit and remained on the mechanical ventilator. Currently on assist-control mode at 18, tidal volume 550, FiO2 100% and a PEEP of 5. Initial blood gases revealed a PaO2 of 214. pCO2 of 41 and a pH of 7.37. His FiO2 was decreased to 60%. He is continued on normal saline at 130 MLS per hour. He is on propofol at 40 mcg/kg/min. He is continued on vancomycin and Zosyn. The patient is seen today May 16, 2023 in follow-up in the intensive care unit. He was successfully extubated yesterday. He is currently awake and alert in no acute distress. He is maintaining good O2 saturations in the upper 90s on 2 L/min per nasal cannula. He is afebrile. Hemodynamically stable. Chest x-ray shows no acute pulmonary process. No evidence of pneumothorax. He has normal saline at 130 MLS per hour. Urology is planning to perform further debridement tomorrow morning. Cultures from the scrotum are revealing presumptive Staph aureus. He is continued on Zyvox, clindamycin and Zosyn. White count 10.0. Hemoglobin 11.0. Platelets 207. Sodium 131. Potassium 4.0. Bicarb 23. BUN 8. Creatinine 0.95. Glucose 103. Uncontrolled with Dilaudid and Toradol. Lovenox for DVT prophylaxis. Pepcid for GI prophylaxis The patient is seen today May 17, 2023 in follow-up in the intensive care unit. He is currently resting comfortably in bed. Awake and alert in no acute distress. He is maintaining good O2 saturations in the 90s on 2 L/min per nasal cannula. Normal saline at 75 MLS per hour. He is continued on antibiotics in the form of clindamycin, Zosyn and Zyvox. Scrotum wound tissue shows presumptive Staph aureus. Sputum culture revealed no growth. White count 6.8. Hemoglobin 10.4. Platelets 210. Sodium 132. Potassium 3.9. Bicarb 25. BUN 6. Creatinine 0.84. Glucose 117. The plan is for a repeat scrotal wall washout, possible debridement and dressing change with urology today. Lovenox for DVT prophylaxis. Objective - Vital Signs Vital signs: Vital Signs Temp 98.2 F 05/17/23 08:00 Pulse 73 05/17/23 09:00 Resp 13 05/17/23 09:00 BP 98/68 05/17/23 09:00 Pulse Ox 93 L 05/17/23 09:00 FiO2 40 05/15/23 16:15 Intake & Output 05/16/23 05/17/23 05/17/23 18:59 06:59 18:59 Intake Total 1665 1990 650 Output Total 2034 2225 360 Balance -370 -235 290 Weight 125.6 kg Intake: IV 1665 1450 650 0.9 1065 900 300 Clindamycin 600 mg In 100 50 50 Dextrose 5% in Water 50 ml @ 50 mls/hr IVPB Q8HR [facility] Rx#:[id number] Linezolid 600 mg In 300 300 300 Dextrose/Water 1 300ml. bag @ 150 mls/hr IVPB Q12HR [facility] Rx#:[id number] Piperacillin-Tazobactam 3 100 200 .375 gm In Sodium Chloride 0.9% 100 ml @ 25 mls/hr IVPB Q8H [facility] Rx#: [id number] Sodium Ferric Gluconat- 100 Sucrose 125 mg In Sodium Chloride 0.9% 100 ml @ 100 mls/hr IVPB DAILY [facility] Rx#:[id number] Oral 540 Output: Urine 2034 2224 360 Other: Voiding Method Indwelling Catheter Indwelling Catheter Indwelling Catheter - Exam GENERAL EXAM: Alert, 37-year-old male patient, resting in bed, fairly comfortable in no apparent distress. HEAD: Normocephalic. EYES: Normal reaction of pupils, equal size. NOSE: Clear with pink turbinates. THROAT: No erythema or exudates. NECK: No masses, no JVD. CHEST: No chest wall deformity. LUNGS: Equal air entry with no crackles, wheeze, rhonchi or dullness. On 2 L nasal cannula, CVS: S1 and S2 normal with no audible murmur, regular rhythm. ABDOMEN: No hepatosplenomegaly, normal bowel sounds, no guarding or rigidity. SPINE: No scoliosis or deformity SKIN: Scrotal dressing is dry and intact. CENTRAL NERVOUS SYSTEM: No focal deficits, tone is normal in all 4 extremities. EXTREMITIES: There is no peripheral edema. No clubbing, no cyanosis. Peripheral pulses are intact. - Labs CBC & Chem 7: 05/17/23 04:13 05/17/23 04:13 Labs: Abnormal Lab Results - Last 24 Hours (Table) 05/17/23 05/17/23 Range/Units 04:13 04:13 RBC 3.49 L (4.30-5.90) m/uL Hgb 10.4 L (13.0-17.5) gm/dL Hct 31.1 L (39.0-53.0) % Lymphocytes # 0.9 L (1.0-4.8) k/uL Sodium 132 L (137-145) mmol/L BUN 6 L (9-20) mg/dL Glucose 117 H (74-99) mg/dL Calcium 7.7 L (8.4-10.2) mg/dL Microbiology - Last 24 Hours (Table) 05/15/23 15:45 Gram Stain - Final Sputum Sputum Culture - Final 05/15/23 09:30 Anaerobic Culture - Final Groin 05/15/23 02:30 Blood Culture - Preliminary Blood 05/15/23 02:15 Blood Culture - Preliminary Blood 05/15/23 09:30 Gram Stain - Preliminary Scrotum Tissue Culture - Preliminary Presumptive Staph aureus 05/15/23 09:30 Gram Stain - Preliminary Groin Assessment and Plan Assessment: Cellulitis/Ayala's gangrene of the left scrotum status post debridement today 05/15/2023. Postoperative day #2. Sugars showing presumptive MRSA. Plan is for a left scrotal wall washout, possible debridement and dressing change today with urology. Acute sepsis secondary to above initial lactic acid 14.5, currently 0.8 Plan: The patient was seen and evaluated Chest x-ray, labs, and medications reviewed Currently stable on 2 L nasal cannula Continue Zyvox, clindamycin and Zosyn Continue saline to 75 MLS per hour Lovenox for DVT prophylaxis Plan is to return to OR today per urology We will continue to follow I have personally seen and examined the patient, performed the documentation and the assessment and plan as written. Number of minutes spent on the visit: 10.
[2023-05-17] MEDS: LACTATED RINGERS 1,000 ML IV ONE (11:12)
--- NOTE | 2023-05-17 11:42 | P.OP ---
Date of Procedure: 05/17/23 Preoperative Diagnosis: Ayala's gangrene Postoperative Diagnosis: Same Procedure(s) Performed: Scrotal wound washout, partial wound closure Implants: None Anesthesia: GETA Estimated Blood Loss (ml): 5 Pathology: none sent Condition: stable Disposition: PACU Indications for Procedure: This is a 37-year-old male that presented to the hospital with significant left- sided scrotal Ayala's gangrene, on presentation patient was febrile tachycardic and lactate was 14 patient patient was taken emergently to the OR for left scrotal wall debridement on 05/14 . He has improved clinically, he was taken to the OR back for a washout, possible debridement and possible wound closure to cover the left exposed testicle. Risk benefit and rationale were discussed with the patient and his in detail. They understood all the risk and agreed to proceed Description of Procedure: Patient brought to the operating room, general anesthesia was induced. He was prepped and draped in sterile fashion placed in dorsolithotomy position. On evaluation of the wound there was no additional necrotic tissue appreciated, there was healthy granulation tissue forming along the exposed tissue. At this point using the sempulse the wound was washed. The left testicle was exposed, the scrotal skin along the right side was loosely sutured to the lateral aspect of the left scrotum, three 2-0 silk sutures were used to perform this, stitches were placed in horizontal mattress. At this point the left testicle was covered and the skin was loosely approximated. A Linda was placed underneath the closure in order to keep the area drained. Next the wound was packed using a Kimberlee, of note there was a pocket along the perineum and that was packed, sterile dressing was applied. Patient was awakened from anesthesia and taken to recovery in stable condition
[2023-05-17] MEDS: HYDROmorphone 0.5 MG/0.5 ML SYRINGE IVP ONE (11:55)
[2023-05-17] MEDS: KETOROLAC 15 MG/ML 1 ML VIAL IVP ONE (12:23)
[2023-05-17] MEDS: ARTIFICIAL TEARS-HYPROMELLOSE DROPS 15 ML BTL BOTH EYES PRN (23:39)
[2023-05-18 04:25] LABS: Basophils % (A) 0 %; Eosinophils # (A) 0.2 k/uL (0-0.7); Eosinophils % (A) 2 %; HCT 33.7 % (39.0-53.0); HGB 10.9 gm/dL (13.0-17.5); Lymphocytes # (A) 1.3 k/uL (1.0-4.8); Lymphocytes % (A) 19 %; MCH 29.5 pg (25.0-35.0); MCHC 32.5 g/dL (31.0-37.0); MCV 90.9 fL (80.0-100.0); Monocytes # (A) 0.4 k/uL (0-1.0); Monocytes % (A) 6 %; Neutrophils # (A) 4.5 k/uL (1.3-7.7); Neutrophils % (A) 69 %; Platelet Count 242 k/uL (150-450); RBC 3.71 m/uL (4.30-5.90); RDW 12.8 % (11.5-15.5); WBC 6.4 k/uL (3.8-10.6)
[2023-05-18 04:39] LABS: African American GFR (CKD) >90 (>60 ml/min/1.73 sqM); Anion Gap 4 mmol/L; Blood Urea Nitrogen 6 mg/dL (9-20); Calcium 7.6 mg/dL (8.4-10.2); Carbon Dioxide 25 mmol/L (22-30); Chloride 104 mmol/L (98-107); Glucose 85 mg/dL (74-99); Non-African American GFR(CKD) >90 (>60 ml/min/1.73 sqM); Potassium 3.9 mmol/L (3.5-5.1); Sodium 133 mmol/L (137-145)
[2023-05-18] MEDS ORDERED: Potassium Replacement Protocol 1 EACH MISC MISCELLANE PRN (07:21)
[2023-05-18] MEDS: POTASSIUM CHLORIDE ER 20 MEQ TAB.ER PO SCH (08:59)
--- NOTE | 2023-05-18 10:11 | P.PN ---
Subjective Progress Note Date: 05/18/23 This is a 37-year-old male patient with no significant medical history. He presented here to the emergency room late last night with complaints of scrotal swelling. He reported a 2 to 3-day history of what he thought was a pimple on his left scrotum attempted to pop it. Since then he had increased swelling pain and developed some fever and chills. Scrotal ultrasound revealed soft tissue infection or cellulitis suspected. No well-formed fluid collection or abscess identified. CT scan of the pelvis revealed abnormal skin thickening and diffuse edema along the inferior aspect of the left scrotum. No thick walled fluid collection or drainable abscess. Left testicle slightly smaller than right. White count 11.2. Hemoglobin 11.1. Sodium 129. Potassium 4.0. Bicarb 10. BUN 7. Creatinine 0.53. Glucose 53. Initial lactic acid 14.5. He received 4- 1/2 L of fluid resuscitation and was initiated on vancomycin and Zosyn. He was seen and evaluated by urology who took the patient to surgery for surgical debridement of the left scrotal wall greater than 10 cm. 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 Following surgery he was taken to the intensive care unit and remained on the mechanical ventilator. Currently on assist-control mode at 18, tidal volume 550, FiO2 100% and a PEEP of 5. Initial blood gases revealed a PaO2 of 214. pCO2 of 41 and a pH of 7.37. His FiO2 was decreased to 60%. He is continued on normal saline at 130 MLS per hour. He is on propofol at 40 mcg/kg/min. He is continued on vancomycin and Zosyn. The patient is seen today May 16, 2023 in follow-up in the intensive care unit. He was successfully extubated yesterday. He is currently awake and alert in no acute distress. He is maintaining good O2 saturations in the upper 90s on 2 L/min per nasal cannula. He is afebrile. Hemodynamically stable. Chest x-ray shows no acute pulmonary process. No evidence of pneumothorax. He has normal saline at 130 MLS per hour. Urology is planning to perform further debridement tomorrow morning. Cultures from the scrotum are revealing presumptive Staph aureus. He is continued on Zyvox, clindamycin and Zosyn. White count 10.0. Hemoglobin 11.0. Platelets 207. Sodium 131. Potassium 4.0. Bicarb 23. BUN 8. Creatinine 0.95. Glucose 103. Uncontrolled with Dilaudid and Toradol. Lovenox for DVT prophylaxis. Pepcid for GI prophylaxis The patient is seen today May 17, 2023 in follow-up in the intensive care unit. He is currently resting comfortably in bed. Awake and alert in no acute distress. He is maintaining good O2 saturations in the 90s on 2 L/min per nasal cannula. Normal saline at 75 MLS per hour. He is continued on antibiotics in the form of clindamycin, Zosyn and Zyvox. Scrotum wound tissue shows presumptive Staph aureus. Sputum culture revealed no growth. White count 6.8. Hemoglobin 10.4. Platelets 210. Sodium 132. Potassium 3.9. Bicarb 25. BUN 6. Creatinine 0.84. Glucose 117. The plan is for a repeat scrotal wall washout, possible debridement and dressing change with urology today. Lovenox for DVT prophylaxis. On today's evaluation of 05/18/2023, the patient is being seen in follow-up. The patient has Ayala's gangrene and the cultures turned out to be positive for S taph aureus, MSSA. The patient is currently on broad-spectrum antibiotics that can be modified. The patient is on currently on a combination of Zyvox, clindamycin and IV Zosyn. Infectious disease on the case. Urology is on the case. The patient's white cell count at 6.4 with a hemoglobin 10.9. Sodium is at 133, BUN is at 6 with a creatinine of 0.8 and potassium level is at 3.9. No signs of encephalopathy at this point in time. The blood cultures have been negative and the wound cultures were essentially positive. The patient is on room air oxygen. He is on normal saline at rate of 75 cc an hour. Moving all 4 extremities. There is a drain in his right groin area which is being managed by urology team. Noted the patient underwent a second surgical exploration with scrotal wound washout and partial wound closure. Objective - Vital Signs Vital signs: Vital Signs Temp 99.2 F 05/18/23 06:00 Pulse 83 05/18/23 07:00 Resp 12 05/18/23 07:00 BP 114/78 05/18/23 07:00 Pulse Ox 93 L 05/18/23 07:00 FiO2 40 05/15/23 16:15 Intake & Output 05/17/23 05/18/23 05/18/23 18:59 06:59 18:59 Intake Total 0 1350 75 Output Total 945 1275 45 Balance 1105 75 30 Weight 123.8 kg Intake: IV 0 1350 75 0.9 750 900 75 Clindamycin 600 mg In 100 50 Dextrose 5% in Water 50 ml @ 50 mls/hr IVPB Q8HR [facility] Rx#:[id number] Linezolid 600 mg In 300 300 Dextrose/Water 1 300ml. bag @ 150 mls/hr IVPB Q12HR [facility] Rx#:[id number] Piperacillin-Tazobactam 3 200 100 .375 gm In Sodium Chloride 0.9% 100 ml @ 25 mls/hr IVPB Q8H [facility] Rx#: [id number] Output: Urine 940 1275 45 Estimated Blood Loss 5 Other: Voiding Method Indwelling Catheter Indwelling Catheter - Exam GENERAL EXAM: Alert, 37-year-old male patient, resting in bed, fairly comfortable in no apparent distress. The patient is currently on room air oxygen. Communicating. HEAD: Normocephalic. EYES: Normal reaction of pupils, equal size. NOSE: Clear with pink turbinates. THROAT: No erythema or exudates. NECK: No masses, no JVD. CHEST: No chest wall deformity. LUNGS: Equal air entry with no crackles, wheeze, rhonchi or dullness. CVS: S1 and S2 normal with no audible murmur, regular rhythm. ABDOMEN: No hepatosplenomegaly, normal bowel sounds, no guarding or rigidity. SPINE: No scoliosis or deformity SKIN: Scrotal dressing is dry and intact. CENTRAL NERVOUS SYSTEM: No focal deficits, tone is normal in all 4 extremities. EXTREMITIES: There is no peripheral edema. No clubbing, no cyanosis. Peripheral pulses are intact. - Labs CBC & Chem 7: 05/18/23 03:29 05/18/23 03:29 Labs: Abnormal Lab Results - Last 24 Hours (Table) 05/18/23 05/18/23 Range/Units 03:29 03:29 RBC 3.71 L (4.30-5.90) m/uL Hgb 10.9 L (13.0-17.5) gm/dL Hct 33.7 L (39.0-53.0) % Sodium 133 L (137-145) mmol/L BUN 6 L (9-20) mg/dL Calcium 7.6 L (8.4-10.2) mg/dL Microbiology - Last 24 Hours (Table) 05/15/23 09:30 Gram Stain - Final Scrotum Tissue Culture - Final Staphylococcus aureus 05/15/23 09:30 Gram Stain - Preliminary Groin Wound Culture - Preliminary Presumptive Staph aureus 05/15/23 02:30 Blood Culture - Preliminary Blood 05/15/23 02:15 Blood Culture - Preliminary Blood 05/15/23 09:30 Anaerobic Culture - Preliminary Scrotum 05/15/23 15:45 Gram Stain - Final Sputum Sputum Culture - Final 05/15/23 09:30 Anaerobic Culture - Final Groin Assessment and Plan Plan: Cellulitis/Ayala's gangrene of the left scrotum status post debridement today 05/15/2023. Postoperative day #3. The patient underwent another scrotal washout and partial closure of the wound on 05/17/2023 and the patient is postop day #1. Cultures are positive for Staph aureus, MSSA Sepsis secondary to above, improving, currently on no pressors Generalized weakness secondary to sepsis Lactic acidosis secondary to above, improved Plan Continue normal saline at rate of 75 cc an hour Currently on a combination of Zyvox, clindamycin and Zosyn. Further antibiotic adjustments can be made based on the presence of MSSA in the scrotal wound. Management of the wound and dressing per urology Electrolytes are all stable Hemodynamically stable Lovenox for DVT prophylaxis The patient can be downgraded and moved out of the intensive care unit today.
--- NOTE | 2023-05-18 17:37 | P.PN ---
Subjective Progress Note Date: 05/18/23 Principal diagnosis: Ayala's gangrene The patient underwent scrotal debridement on May 15, 2023. He subsequently underwent scrotal washout yesterday with reapproximation of the scrotal skin edges. A Linda drain is in place. He reports moderate discomfort, relieved by Dilaudid. Wound and tissue cultures show Staph aureus. Objective - Vital Signs Vital signs: Vital Signs Temp 98.4 F 05/18/23 17:00 Pulse 89 05/18/23 17:00 Resp 17 05/18/23 17:00 BP 121/76 05/18/23 17:00 Pulse Ox 96 05/18/23 17:00 FiO2 40 05/15/23 16:15 Intake & Output 05/17/23 05/18/23 05/18/23 18:59 06:59 18:59 Intake Total 2050 1350 375 Output Total 945 1275 1395 Balance 1105 75 -1020 Weight 123.8 kg Intake: IV 0 1350 375 0.9 750 900 225 Clindamycin 600 mg In 100 50 50 Dextrose 5% in Water 50 ml @ 50 mls/hr IVPB Q8HR [facility] Rx#:[id number] Linezolid 600 mg In 300 300 Dextrose/Water 1 300ml. bag @ 150 mls/hr IVPB Q12HR [facility] Rx#:[id number] Piperacillin-Tazobactam 3 200 100 100 .375 gm In Sodium Chloride 0.9% 100 ml @ 25 mls/hr IVPB Q8H [facility] Rx#: [id number] Output: Urine 940 1275 1395 Estimated Blood Loss 5 Other: Voiding Method Indwelling Catheter Indwelling Catheter Indwelling Catheter - Constitutional General appearance: Present: average body habitus, cooperative, no acute distress - Genitourinary Genitourinary Comment(s): The scrotal skin edges are approximated. The Linda drain is intact, exiting the upper and lower aspects of the open scrotal wound. There is evidence of granulation tissue. There is mild serous drainage. There is no evidence of tissue necrosis or purulence. - Labs CBC & Chem 7: 05/18/23 03:29 05/18/23 03:29 Labs: Abnormal Lab Results - Last 24 Hours (Table) 05/18/23 05/18/23 Range/Units 03:29 03:29 RBC 3.71 L (4.30-5.90) m/uL Hgb 10.9 L (13.0-17.5) gm/dL Hct 33.7 L (39.0-53.0) % Sodium 133 L (137-145) mmol/L BUN 6 L (9-20) mg/dL Calcium 7.6 L (8.4-10.2) mg/dL Microbiology - Last 24 Hours (Table) 05/15/23 02:30 Blood Culture - Preliminary Blood 05/15/23 02:15 Blood Culture - Preliminary Blood 05/15/23 09:30 Gram Stain - Final Groin Wound Culture - Final Staphylococcus aureus 05/15/23 09:30 Gram Stain - Final Scrotum Tissue Culture - Final Staphylococcus aureus Assessment and Plan (1) Cellulitis of scrotum Current Visit: Yes Status: Acute Code(s): N49.2 - INFLAMMATORY DISORDERS OF SCROTUM SNOMED Code(s): 53076824 Plan: - Local wound care - Continue IV antibiotics (clindamycin, Zosyn, Linezolid) - Ambulate as tolerated - Armstrong catheter may be removed once patient is able to move around enough to void
--- NOTE | 2023-05-18 18:04 | P.PN ---
Progress Note - Text Progress Note Date: 05/17/23 Chief Complaint: Scrotal swelling This is a 37-year-old patient, follows Dr. Calos Jackson. Pretty healthy and unremarkable past medical history. Patient presented to the ER with scrotal swelling. He reported to have 2 to 3 days ago what you thought was a pimple on his left scrotum and he attempted to pop it. It gradually became worse and pain swelling and overnight tripled in size. Is also had some complaint of fever and chills. Patient in the ER was given IV fluids IV Zosyn. And IV vancomycin. Patient is moved to the medical floor, where he was more septic. And taken to the OR. Black necrotic tissue along the left scrotum was noted. And the wall was edematous and indurated. It was excised. In the medial aspect of the right scrotal wall was also excised. The penis in the pubic area of the rectum was not involved. Total area resected was 10 x 15 cm. Scrotal wall around the left testicle was removed but testicle was covered with the tunica vaginalis. This was not involved. No involvement of the urethra or peritoneal utricle tissue. Patient was intubated in the OR. Then moved to the ICU. Received 5 L of fluid during the procedure. Currently intubated with FiO2 60 and a PEEP of 5. Patient's mother at the bedside. On IV propofol May 15: ICU. Patient extubated yesterday. Laying in bed. Comfortable. Tolerated diet. Armstrong catheter in place. Family at the bedside. IV Zosyn IV linezolid IV clindamycin. Some pain at the operative site. Due to go back to the OR tomorrow. For closure of wound.. Questions answered. Patient does shave his groin area and testicle. He also was swimming in [place] prior to coming in. Preventive measures discussed. May 16: ICU. Patient was taken back to the OR. Underwent scrotal wound washout and partial wound closure by Dr. Shoemaker. [place] drain was placed. Armstrong remains in place. Discussed with the and updated. She had spoken to Dr. Shoemaker earlier. Active Medications Acetaminophen (Acetaminophen Tab 325 Mg Tab) 650 mg PO Q6HR PRN PRN Reason: Mild Pain or Fever > 100.5 Last Admin: 05/16/23 20:55 Dose: 650 mg Enoxaparin Sodium (Enoxaparin 40 Mg/0.4 Ml Syringe) 40 mg SQ DAILY [facility] Last Admin: 05/17/23 10:20 Dose: Not Given Famotidine (Famotidine 20 Mg/2 Ml Vial) 20 mg IV Q12HR [facility] Last Admin: 05/17/23 08:22 Dose: 20 mg Hydromorphone HCl (Hydromorphone 0.5 Mg/0.5 Ml Syringe) 0.5 mg IVP Q3HR PRN PRN Reason: Moderate Pain (Scale 4 to 6) Hydromorphone HCl (Hydromorphone 1 Mg/Ml 1 Ml Syringe) 1 mg IVP Q2HR PRN PRN Reason: Severe Pain (Scale 7 to 10) Last Admin: 05/17/23 14:01 Dose: 1 mg Piperacillin Sod/Tazobactam (Sod 3.375 gm/ Sodium Chloride) 100 mls @ 25 mls/hr IVPB Q8H [facility]; Protocol Last Admin: 05/17/23 12:42 Dose: 25 mls/hr Sodium Chloride (Saline 0.9%) 1,000 mls @ 75 mls/hr IV .[id number] [facility] Last Admin: 05/17/23 12:42 Dose: 75 mls/hr Clindamycin Phosphate 600 mg/ (Dextrose/Water) 54 mls @ 50 mls/hr IVPB Q8HR [facility]; Protocol Last Admin: 05/17/23 07:42 Dose: 50 mls/hr Linezolid 600 mg/ IV Solution 300 mls @ 150 mls/hr IVPB Q12HR [facility]; Protocol Last Admin: 05/17/23 08:22 Dose: 150 mls/hr Ketorolac Tromethamine (Ketorolac 15 Mg/Ml 1 Ml Vial) 15 mg IVP Q6HR [facility] Stop: 05/21/23 09:02 Last Admin: 05/17/23 12:21 Dose: Not Given Naloxone HCl (Naloxone 0.4 Mg/Ml 1 Ml Vial) 0.2 mg IV Q2M PRN PRN Reason: Opioid Reversal Ondansetron HCl (Ondansetron 4 Mg/2 Ml Vial) 4 mg IVP Q8HR PRN PRN Reason: Nausea And Vomiting Social history: . Does not smoke or drink alcohol. Works as a [employer]. Physical examination: VITAL SIGNS: Afebrile, 80, 12, 1 one 3 x 77, 98% on 2 L GENERAL: Laying in bed, sleepy EYES: Pupils equal. Conjunctiva luigi l. HEENT: External appearance of nose and ears normal, oral cavity grossly normal. NECK: JVD not raised; masses not palpable. HEART: First and second heart sounds are normal; no edema. LUNGS: Respiratory rate normal; clear to auscultation. ABDOMEN: Soft, nontender, liver spleen not palpable, no masses palpable. Dressing over the scrotum with the support. Armstrong catheter. PSYCH: Sleepy, postprocedure INVESTIGATIONS, reviewed in the clinical context: May 16: White count 6.4 hemoglobin 10.9 potassium 3.9 creatinine 0.85 May 15: White count 10 hemoglobin 11 platelets 2 7 potassium 4 creatinine 0.95 May 15, 2023: White count 9.2 hemoglobin 11.1 platelets 194 May 15, 2023: White count 15.4 hemoglobin 14.1 platelets 258 potassium 3.6 creatinine 1.14 lactic acid 1.4 then went up to 14.5 Scrotum ultrasound scrotal soft tissue infection//suspected no obvious fluid filled collection. Pelvic CT: Testicles remain well-defined. Thickening of the left scrotal wall. Chest x-ray film personally reviewed by me-unremarkable Assessment plan: -Acute left scrotal skin necrosis resulting initially from a pimple that was popped by the patient 2 to 3 days prior to presentation. Resulting in necrotic tissue sepsis. Surgical excision of the infected tissue. Wound cultures growing presumptive Staph aureus May 16: Taken back to the OR. Wound washout. Partial closure with Linda drain placed. IV vancomycin. IV Zosyn. IV clindamycin. -Acute respiratory failure requiring ventilator support: Extubated -Lactic acidosis secondary to sepsis -Hyponatremia decreased oral intake -Acute postprocedure blood loss anemia expected from surgery. Reported of EBL of 200 cc. IV Ferrlecit Continue IV fluids. Antibiotics. Discussed with patient's Past Medical History Past Medical History: No Reported History History of Any Multi-Drug Resistant Organisms: None Reported Past Surgical History: No Surgical Hx Reported Past Psychological History: No Psychological Hx Reported Smoking Status: Never smoker Past Alcohol Use History: Occasional Past Drug Use History: None Reported
--- NOTE | 2023-05-18 18:47 | P.PN ---
Progress Note - Text Progress Note Date: 05/18/23 Chief Complaint: Scrotal swelling This is a 37-year-old patient, follows Dr. Calos Jackson. Pretty healthy and unremarkable past medical history. Patient presented to the ER with scrotal swelling. He reported to have 2 to 3 days ago what you thought was a pimple on his left scrotum and he attempted to pop it. It gradually became worse and pain swelling and overnight tripled in size. Is also had some complaint of fever and chills. Patient in the ER was given IV fluids IV Zosyn. And IV vancomycin. Patient is moved to the medical floor, where he was more septic. And taken to the OR. Black necrotic tissue along the left scrotum was noted. And the wall was edematous and indurated. It was excised. In the medial aspect of the right scrotal wall was also excised. The penis in the pubic area of the rectum was not involved. Total area resected was 10 x 15 cm. Scrotal wall around the left testicle was removed but testicle was covered with the tunica vaginalis. This was not involved. No involvement of the urethra or peritoneal utricle tissue. Patient was intubated in the OR. Then moved to the ICU. Received 5 L of fluid during the procedure. Currently intubated with FiO2 60 and a PEEP of 5. Patient's mother at the bedside. On IV propofol May 15: ICU. Patient extubated yesterday. Laying in bed. Comfortable. Tolerated diet. Armstrong catheter in place. Family at the bedside. IV Zosyn IV linezolid IV clindamycin. Some pain at the operative site. Due to go back to the OR tomorrow. For closure of wound.. Questions answered. Patient does shave his groin area and testicle. He also was swimming in [place] prior to coming in. Preventive measures discussed. May 16: ICU. Patient was taken back to the OR. Underwent scrotal wound washout and partial wound closure by Dr. Shoemaker. [place] drain was placed. Armstrong remains in place. Discussed with the and updated. She had spoken to Dr. Shoemaker earlier. May 17: ICU. Laying in bed. Allowed to be sitting up in activity as tolerated per urology. Armstrong catheter in place. at the bedside. Decreased intake. Patient advised to increase oral intake. On IV linezolid, Zosyn, clindamycin. Cultures positive for MSSA. Consult ID Active Medications Acetaminophen (Acetaminophen Tab 325 Mg Tab) 650 mg PO Q6HR PRN PRN Reason: Mild Pain or Fever > 100.5 Last Admin: 05/17/23 14:41 Dose: 650 mg Artificial Tears (Artificial Tears-Hypromellose Drops 15 Ml Btl) 1 drops BOTH EYES QID PRN PRN Reason: Dry Eye(s) Last Admin: 05/17/23 23:39 Dose: 1 drops Enoxaparin Sodium (Enoxaparin 40 Mg/0.4 Ml Syringe) 40 mg SQ DAILY [facility] Last Admin: 05/18/23 08:59 Dose: 40 mg Famotidine (Famotidine 20 Mg/2 Ml Vial) 20 mg IV Q12HR [facility] Last Admin: 05/18/23 08:59 Dose: 20 mg Hydromorphone HCl (Hydromorphone 0.5 Mg/0.5 Ml Syringe) 0.5 mg IVP Q3HR PRN PRN Reason: Moderate Pain (Scale 4 to 6) Hydromorphone HCl (Hydromorphone 1 Mg/Ml 1 Ml Syringe) 1 mg IVP Q2HR PRN PRN Reason: Severe Pain (Scale 7 to 10) Last Admin: 05/18/23 16:46 Dose: 1 mg Piperacillin Sod/Tazobactam (Sod 3.375 gm/ Sodium Chloride) 100 mls @ 25 mls/hr IVPB Q8H [facility]; Protocol Last Admin: 05/18/23 18:34 Dose: 25 mls/hr Clindamycin Phosphate 600 mg/ (Dextrose/Water) 54 mls @ 50 mls/hr IVPB Q8HR [facility]; Protocol Last Admin: 05/18/23 15:56 Dose: 50 mls/hr Linezolid 600 mg/ IV Solution 300 mls @ 150 mls/hr IVPB Q12HR [facility]; Protocol Last Admin: 05/18/23 08:59 Dose: 150 mls/hr Ketorolac Tromethamine (Ketorolac 15 Mg/Ml 1 Ml Vial) 15 mg IVP Q6HR [facility] Stop: 05/21/23 09:02 Last Admin: 05/18/23 18:34 Dose: 15 mg Miscellaneous Information (Potassium Replacement Protocol 1 Each Misc) 1 each [place]ISCE[place] DAILY PRN; Protocol PRN Reason: Per Protocol Naloxone HCl (Naloxone 0.4 Mg/Ml 1 Ml Vial) 0.2 mg IV Q2M PRN PRN Reason: Opioid Reversal Ondansetron HCl (Ondansetron 4 Mg/2 Ml Vial) 4 mg IVP Q8HR PRN PRN Reason: Nausea And Vomiting Social history: . Does not smoke or drink alcohol. Works as a [employer]onas. Physical examination: VITAL SIGNS: 98.4, 89, 17, 128 x 76, 96% room GENERAL: Laying in bed, comfortable EYES: Pupils equal. Conjunctiva luigi l. HEENT: External appearance of nose and ears normal, oral cavity grossly normal. NECK: JVD not raised; masses not palpable. HEART: First and second heart sounds are normal; no edema. LUNGS: Respiratory rate normal; clear to auscultation. ABDOMEN: Soft, nontender, liver spleen not palpable, no masses palpable. Dressing over the scrotum with the support. Armstrong catheter. PSYCH: AOx3, mood affect normal INVESTIGATIONS, reviewed in the clinical context: Wound culture: Staphylococcus aureus. MSSA May 16: White count 6.4 hemoglobin 10.9 potassium 3.9 creatinine 0.85 May 16: White count 6.4 hemoglobin 10.9 potassium 3.9 creatinine 0.85 May 15: White count 10 hemoglobin 11 platelets 2 7 potassium 4 creatinine 0.95 May 15, 2023: White count 9.2 hemoglobin 11.1 platelets 194 May 15, 2023: White count 15.4 hemoglobin 14.1 platelets 258 potassium 3.6 creatinine 1.14 lactic acid 1.4 then went up to 14.5 Scrotum ultrasound scrotal soft tissue infection//suspected no obvious fluid filled collection. Pelvic CT: Testicles remain well-defined. Thickening of the left scrotal wall. Chest x-ray film personally reviewed by me-unremarkable Assessment plan: -Acute left scrotal skin necrosis resulting initially from a pimple that was popped by the patient 2 to 3 days prior to presentation. Resulting in necrotic tissue sepsis. Surgical excision of the infected tissue. Wound cultures growing MSSA May 16: Taken back to the OR. Wound washout. Partial closure with Linda drain placed. IV vancomycin. IV Zosyn. IV clindamycin.-Consult ID for antibiotics -Acute respiratory failure requiring ventilator support: Extubated -Lactic acidosis secondary to sepsis -Hyponatremia decreased oral intake -Normocytic anemia from acute postoperative blood loss anemia expected from surgery -Acute postprocedure blood loss anemia expected from surgery. Reported of EBL of 200 cc. IV Ferrlecit Continue IV fluids. Antibiotics. Cussed with patient . Encourage oral intake. Activity as tolerated. ANDRIY Armstrong when okay with urology. Consult ID for antibiotics Past Medical History Past Medical History: No Reported History History of Any Multi-Drug Resistant Organisms: None Reported Past Surgical History: No Surgical Hx Reported Past Psychological History: No Psychological Hx Reported Smoking Status: Never smoker Past Alcohol Use History: Occasional Past Drug Use History: None Reported
[2023-05-19 08:45] LABS: Basophils % (A) 1 %; Eosinophils # (A) 0.2 k/uL (0-0.7); Eosinophils % (A) 4 %; HCT 31.8 % (39.0-53.0); HGB 10.8 gm/dL (13.0-17.5); Lymphocytes # (A) 1.3 k/uL (1.0-4.8); Lymphocytes % (A) 20 %; MCH 30.2 pg (25.0-35.0); MCV 88.8 fL (80.0-100.0); Mean Platelet Volume 7.4; Monocytes # (A) 0.5 k/uL (0-1.0); Monocytes % (A) 7 %; Neutrophils # (A) 4.4 k/uL (1.3-7.7); Neutrophils % (A) 67 %; Platelet Count 283 k/uL (150-450); RBC 3.58 m/uL (4.30-5.90); RDW 12.8 % (11.5-15.5); WBC 6.5 k/uL (3.8-10.6)
[2023-05-19 09:58] LABS: African American GFR (CKD) >90 (>60 ml/min/1.73 sqM); Anion Gap 4 mmol/L; Blood Urea Nitrogen 7 mg/dL (9-20); Calcium 7.8 mg/dL (8.4-10.2); Carbon Dioxide 24 mmol/L (22-30); Chloride 104 mmol/L (98-107); Glucose 107 mg/dL (74-99); Non-African American GFR(CKD) >90 (>60 ml/min/1.73 sqM); Potassium 3.9 mmol/L (3.5-5.1); Sodium 132 mmol/L (137-145)
[2023-05-19] MEDS: HYDROmorphone 0.5 MG/0.5 ML SYRINGE IVP PRN (12:03)
--- NOTE | 2023-05-19 12:53 | P.PN ---
Subjective Progress Note Date: 05/19/23 This is a 37-year-old male patient with no significant medical history. He presented here to the emergency room late last night with complaints of scrotal swelling. He reported a 2 to 3-day history of what he thought was a pimple on his left scrotum attempted to pop it. Since then he had increased swelling pain and developed some fever and chills. Scrotal ultrasound revealed soft tissue infection or cellulitis suspected. No well-formed fluid collection or abscess identified. CT scan of the pelvis revealed abnormal skin thickening and diffuse edema along the inferior aspect of the left scrotum. No thick walled fluid collection or drainable abscess. Left testicle slightly smaller than right. White count 11.2. Hemoglobin 11.1. Sodium 129. Potassium 4.0. Bicarb 10. BUN 7. Creatinine 0.53. Glucose 53. Initial lactic acid 14.5. He received 4- 1/2 L of fluid resuscitation and was initiated on vancomycin and Zosyn. He was seen and evaluated by urology who took the patient to surgery for surgical debridement of the left scrotal wall greater than 10 cm. 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 Following surgery he was taken to the intensive care unit and remained on the mechanical ventilator. Currently on assist-control mode at 18, tidal volume 550, FiO2 100% and a PEEP of 5. Initial blood gases revealed a PaO2 of 214. pCO2 of 41 and a pH of 7.37. His FiO2 was decreased to 60%. He is continued on normal saline at 130 MLS per hour. He is on propofol at 40 mcg/kg/min. He is continued on vancomycin and Zosyn. The patient is seen today May 16, 2023 in follow-up in the intensive care unit. He was successfully extubated yesterday. He is currently awake and alert in no acute distress. He is maintaining good O2 saturations in the upper 90s on 2 L/min per nasal cannula. He is afebrile. Hemodynamically stable. Chest x-ray shows no acute pulmonary process. No evidence of pneumothorax. He has normal saline at 130 MLS per hour. Urology is planning to perform further debridement tomorrow morning. Cultures from the scrotum are revealing presumptive Staph aureus. He is continued on Zyvox, clindamycin and Zosyn. White count 10.0. Hemoglobin 11.0. Platelets 207. Sodium 131. Potassium 4.0. Bicarb 23. BUN 8. Creatinine 0.95. Glucose 103. Uncontrolled with Dilaudid and Toradol. Lovenox for DVT prophylaxis. Pepcid for GI prophylaxis The patient is seen today May 17, 2023 in follow-up in the intensive care unit. He is currently resting comfortably in bed. Awake and alert in no acute distress. He is maintaining good O2 saturations in the 90s on 2 L/min per nasal cannula. Normal saline at 75 MLS per hour. He is continued on antibiotics in the form of clindamycin, Zosyn and Zyvox. Scrotum wound tissue shows presumptive Staph aureus. Sputum culture revealed no growth. White count 6.8. Hemoglobin 10.4. Platelets 210. Sodium 132. Potassium 3.9. Bicarb 25. BUN 6. Creatinine 0.84. Glucose 117. The plan is for a repeat scrotal wall washout, possible debridement and dressing change with urology today. Lovenox for DVT prophylaxis. On today's evaluation of 05/18/2023, the patient is being seen in follow-up. The patient has Ayala's gangrene and the cultures turned out to be positive for S taph aureus, MSSA. The patient is currently on broad-spectrum antibiotics that can be modified. The patient is on currently on a combination of Zyvox, clindamycin and IV Zosyn. Infectious disease on the case. Urology is on the case. The patient's white cell count at 6.4 with a hemoglobin 10.9. Sodium is at 133, BUN is at 6 with a creatinine of 0.8 and potassium level is at 3.9. No signs of encephalopathy at this point in time. The blood cultures have been negative and the wound cultures were essentially positive. The patient is on room air oxygen. He is on normal saline at rate of 75 cc an hour. Moving all 4 extremities. There is a drain in his right groin area which is being managed by urology team. Noted the patient underwent a second surgical exploration with scrotal wound washout and partial wound closure. On today's evaluation of 05/19/2023, the patient has no specific complaints. No significant events overnight. Hemodynamically stable. Afebrile. White cell count at 6.5 and hemoglobin 10.8, BUN is at 7 with a creatinine of 0.9 and sodium is at 132. Antibiotics has been modified to include a combination of clindamycin and IV cefazolin. Cultures were positive for MSSA. Tolerating diet. No altered mentation. No respiratory difficulties. Urology is on the c ase. Objective - Vital Signs Vital signs: Vital Signs Temp 98.8 F 05/19/23 04:00 Pulse 83 05/19/23 04:00 Resp 15 05/19/23 04:00 BP 134/81 05/19/23 04:00 Pulse Ox 100 05/19/23 04:00 FiO2 40 05/15/23 16:15 Intake & Output 05/18/23 05/19/23 05/19/23 18:59 06:59 18:59 Intake Total 375 Output Total 1395 1400 Balance -1020 -1400 Intake: IV 375 0.9 225 Clindamycin 600 mg In 50 Dextrose 5% in Water 50 ml @ 50 mls/hr IVPB Q8HR [facility] Rx#:[id number] Piperacillin-Tazobactam 3 100 .375 gm In Sodium Chloride 0.9% 100 ml @ 25 mls/hr IVPB Q8H [facility] Rx#: [id number] Output: Urine 1395 1400 Other: Voiding Method Indwelling Catheter Indwelling Catheter - Exam GENERAL EXAM: Alert, 37-year-old male patient, resting in bed, fairly comfortable in no apparent distress. The patient is currently on room air oxygen. Communicating. HEAD: Normocephalic. EYES: Normal reaction of pupils, equal size. NOSE: Clear with pink turbinates. THROAT: No erythema or exudates. NECK: No masses, no JVD. CHEST: No chest wall deformity. LUNGS: Equal air entry with no crackles, wheeze, rhonchi or dullness. CVS: S1 and S2 normal with no audible murmur, regular rhythm. ABDOMEN: No hepatosplenomegaly, normal bowel sounds, no guarding or rigidity. SPINE: No scoliosis or deformity SKIN: Scrotal dressing is dry and intact. CENTRAL NERVOUS SYSTEM: No focal deficits, tone is normal in all 4 extremities. EXTREMITIES: There is no peripheral edema. No clubbing, no cyanosis. Peripheral pulses are intact. - Labs CBC & Chem 7: 05/19/23 08:16 05/19/23 08:16 Labs: Abnormal Lab Results - Last 24 Hours (Table) 05/19/23 Range/Units 08:16 RBC 3.58 L (4.30-5.90) m/uL Hgb 10.8 L (13.0-17.5) gm/dL Hct 31.8 L (39.0-53.0) % Microbiology - Last 24 Hours (Table) 05/15/23 02:30 Blood Culture - Preliminary Blood 05/15/23 02:15 Blood Culture - Preliminary Blood 05/15/23 09:30 Gram Stain - Final Groin Wound Culture - Final Staphylococcus aureus Assessment and Plan Plan: Cellulitis/Ayala's gangrene of the left scrotum status post debridement today 05/15/2023. Postoperative day # 4. The patient underwent another scrotal washout and partial closure of the wound on 05/17/2023 and the patient is postop day # 2. Cultures are positive for Staph aureus, MSSA Sepsis secondary to above, improving, currently on no pressors Generalized weakness secondary to sepsis Lactic acidosis secondary to above, improved Plan Continue normal saline at rate of 75 cc an hour Currently on a clindamycin and IV cefazolin Management of the wound and dressing per urology Electrolytes are all stable Hemodynamically stable Lovenox for DVT prophylaxis The patient can be downgraded and moved out of the intensive care unit today.
--- NOTE | 2023-05-19 13:12 | P.PN ---
Subjective No acute overnight event, wound cultures growing Staph aureus. No fevers or chills Objective - Vital Signs Vital signs: Vital Signs Temp 98.2 F 05/19/23 08:00 Pulse 82 05/19/23 12:00 Resp 11 L 05/19/23 12:00 BP 99/64 05/19/23 12:00 Pulse Ox 95 05/19/23 12:00 FiO2 40 05/15/23 16:15 Intake & Output 05/18/23 05/19/23 05/19/23 18:59 06:59 18:59 Intake Total 375 100 Output Total 1395 1400 650 Balance -1020 -1400 -550 Intake: IV 375 0.9 225 Clindamycin 600 mg In 50 Dextrose 5% in Water 50 ml @ 50 mls/hr IVPB Q8HR [facility] Rx#:[id number] Piperacillin-Tazobactam 3 100 .375 gm In Sodium Chloride 0.9% 100 ml @ 25 mls/hr IVPB Q8H [facility] Rx#: [id number] Intake, IV Titration 100 Amount Piperacillin-Tazobactam 3 100 .375 gm In Sodium Chloride 0.9% 100 ml @ 25 mls/hr IVPB Q8H [facility] Rx#: [id number] Output: Urine 1395 1400 650 Other: Voiding Method Indwelling Catheter Indwelling Catheter - Constitutional General appearance: Present: no acute distress - Gastrointestinal General gastrointestinal: Present: soft. Absent: distended, tenderness - Genitourinary Genitourinary Comment(s): Left scrotal wound clean, packing along the posterior aspect was removed and repacked. No purulent drainage or erythema appreciated - Labs CBC & Chem 7: 05/19/23 08:16 05/19/23 08:16 Labs: Abnormal Lab Results - Last 24 Hours (Table) 05/19/23 05/19/23 Range/Units 08:16 08:16 RBC 3.58 L (4.30-5.90) m/uL Hgb 10.8 L (13.0-17.5) gm/dL Hct 31.8 L (39.0-53.0) % Sodium 132 L (137-145) mmol/L BUN 7 L (9-20) mg/dL Glucose 107 H (74-99) mg/dL Calcium 7.8 L (8.4-10.2) mg/dL Microbiology - Last 24 Hours (Table) 05/15/23 09:30 Anaerobic Culture - Final Scrotum 05/15/23 02:30 Blood Culture - Preliminary Blood 05/15/23 02:15 Blood Culture - Preliminary Blood 05/15/23 09:30 Gram Stain - Final Groin Wound Culture - Final Staphylococcus aureus Assessment and Plan Assessment: This is a 37-year-old male that presented to the hospital with significant left- sided scrotal Ayala's gangrene, on presentation patient was febrile tachycardic and lactate was 14 patient patient was taken emergently to the OR for left scrotal wall debridement 05/15/23, was taken back on May 16 for a washout, and the incision was partially covered. Postoperatively he has improved. Will keep [place] in place along the superior aspect of the incision, the inferior portion of the debridement is packed with iodoform packing. At this point tentatively we will plan on keeping the stitches for 2 weeks and we will plan on removing them as an outpatient. Will allow the remainder the i ncision to close by secondary intention at this time this was discussed with the patient and his , but will continue to reassess the incision on a daily basis -Daily dressing change -Continue IV antibiotics -Will reassess wound tomorrow
--- NOTE | 2023-05-19 15:34 | P.PN ---
Progress Note - Text Progress Note Date: 05/19/23 Chief Complaint: Scrotal swelling This is a 37-year-old patient, follows Dr. Calos Jackson. Pretty healthy and unremarkable past medical history. Patient presented to the ER with scrotal swelling. He reported to have 2 to 3 days ago what you thought was a pimple on his left scrotum and he attempted to pop it. It gradually became worse and pain swelling and overnight tripled in size. Is also had some complaint of fever and chills. Patient in the ER was given IV fluids IV Zosyn. And IV vancomycin. Patient is moved to the medical floor, where he was more septic. And taken to the OR. Black necrotic tissue along the left scrotum was noted. And the wall was edematous and indurated. It was excised. In the medial aspect of the right scrotal wall was also excised. The penis in the pubic area of the rectum was not involved. Total area resected was 10 x 15 cm. Scrotal wall around the left testicle was removed but testicle was covered with the tunica vaginalis. This was not involved. No involvement of the urethra or peritoneal utricle tissue. Patient was intubated in the OR. Then moved to the ICU. Received 5 L of fluid during the procedure. Currently intubated with FiO2 60 and a PEEP of 5. Patient's mother at the bedside. On IV propofol May 15: ICU. Patient extubated yesterday. Laying in bed. Comfortable. Tolerated diet. Armstrong catheter in place. Family at the bedside. IV Zosyn IV linezolid IV clindamycin. Some pain at the operative site. Due to go back to the OR tomorrow. For closure of wound.. Questions answered. Patient does shave his groin area and testicle. He also was swimming in [place] prior to coming in. Preventive measures discussed. May 16: ICU. Patient was taken back to the OR. Underwent scrotal wound washout and partial wound closure by Dr. Shoemaker. [place] drain was placed. Armstrong remains in place. Discussed with the and updated. She had spoken to Dr. Shoemaker earlier. May 17: ICU. Laying in bed. Allowed to be sitting up in activity as tolerated per urology. Armstrong catheter in place. at the bedside. Decreased intake. Patient advised to increase oral intake. On IV linezolid, Zosyn, clindamycin. Cultures positive for MSSA. Consult ID May 18: Patient seen in the ICU this morning. Eating well. at the bedside. Did ambulate in the hallway. Armstrong catheter discontinued yesterday. Dark brown discharge from the [place] drain. Seen by ID, IV cefazolin started. Other antibiotics discontinued.. Social history: . Does not smoke or drink alcohol. Works as a [employer]. Physical examination: VITAL SIGNS: Afebrile, 82, 12, 99 x 64, 95% room air GENERAL: Laying in bed, comfortable EYES: Pupils equal. Conjunctiva luigi l. HEENT: External appearance of nose and ears normal, oral cavity grossly normal. NECK: JVD not raised; masses not palpable. HEART: First and second heart sounds are normal; no edema. LUNGS: Respiratory rate normal; clear to auscultation. ABDOMEN: Soft, nontender, liver spleen not palpable, no masses palpable. Dressing over the scrotum with the support. Armstrong catheter. PSYCH: AOx3, mood affect normal INVESTIGATIONS, reviewed in the clinical context: May 18: White count 6.5 hemoglobin 10.8 sodium 132 potassium 3.9 creatinine 0.9 Wound culture: Staphylococcus aureus. MSSA May 15, 2023: White count 9.2 hemoglobin 11.1 platelets 194 May 15, 2023: White count 15.4 hemoglobin 14.1 platelets 258 potassium 3.6 creatinine 1.14 lactic acid 1.4 then went up to 14.5 Scrotum ultrasound scrotal soft tissue infection//suspected no obvious fluid filled collection. Pelvic CT: Testicles remain well-defined. Thickening of the left scrotal wall. Chest x-ray film personally reviewed by me-unremarkable Assessment plan: -Acute left scrotal skin necrosis resulting initially from a pimple that was popped by the patient 2 to 3 days prior to presentation. Resulting in necrotic tissue sepsis. Surgical excision of the infected tissue. Wound cultures growing MSSA May 16: Taken back to the OR. Wound washout. Partial closure with [place] drain placed. Antibiotics changed to IV cefazolin. ID following Iodoform packing -Acute respiratory failure requiring ventilator support: Extubated -Lactic acidosis secondary to sepsis -Hyponatremia, mild -Normocytic anemia from acute postoperative blood loss anemia expected from surgery -Acute postprocedure blood loss anemia expected from surgery. Reported of EBL of 200 cc. IV Ferrlecit given Increase activity. Discussed with patient . Past Medical History Past Medical History: No Reported History History of Any Multi-Drug Resistant Organisms: None Reported Past Surgical History: No Surgical Hx Reported Past Psychological History: No Psychological Hx Reported Smoking Status: Never smoker Past Alcohol Use History: Occasional Past Drug Use History: None Reported
--- NOTE | 2023-05-19 22:16 | P.CONS ---
History of Present Illness - Reason for Consult Consult date: 05/19/23 Scrotal infection Requesting physician: Oumar Purcell - Chief Complaint Pain and discomfort in the scrotum x few days - History of Present Illness Patient is a 37-year-old male with no significant past medical history presenting to the hospital about 4 days ago for evaluation of increasing pain and swelling to the scrotal area patient mention he did develop a small pimple that he squeezed subsequently noticed to have increasing swelling redness and pain to the scrotal area that has progressed to get worse to the point that he cannot take the pain and the patient presented to the hospital patient did have some subjective chills but denies high-grade fever patient on presentation to the hospital did have a fever of 101 F patient was tachycardic on presentation to the hospital but not hypotensive patient did have a CT of the pelvis abnormal skin thickening and diffuse edema along the inferior aspect of the left scrotum no thick-walled fluid collection or drainable abscess patient was evaluated by urology and did have a surgical debridement of the left scrotal wall concerning for Ayala's gangrene culture positive for MSSA blood culture has been negative patient is currently being combination of Zosyn and Zyvox and clindamycin infectious he was consulted after the patient has been hospital for about 4 days for further management of antibiotic therapy. At the time my evaluation patient denies having any fever or any chills patient denies having headache or URI symptoms no chest pain shortness of breath or cough no nausea no vomiting no abdominal pain, pain to the scrotal area has decreased intensity mostly dull aching mild to moderate without any radiation Review of Systems Positive point and negatives has been mentioned in the HPI, complete review of systems was performed and all other systems are negative Past Medical History Past Medical History: No Reported History History of Any Multi-Drug Resistant Organisms: None Reported Past Surgical History: No Surgical Hx Reported Past Anesthesia/Blood Transfusion Reactions: No Reported Reaction, Unable to Obtain Past Psychological History: No Psychological Hx Reported Smoking Status: Never smoker Past Alcohol Use History: Occasional Past Drug Use History: None Reported - Past Family History Father Family Medical History: No Reported History Mother Family Medical History: Cancer, Coronary Artery Disease (CAD), Thyroid Disorder Medications and Allergies Home Medications Medication Instructions Recorded Confirmed Type Acetaminophen Tab [Tylenol] 650 mg PO Q6HR PRN tab 05/21/23 Rx Cephalexin [Keflex] 500 mg PO Q6HR 12 Days #48 cap 05/21/23 Rx Ketorolac [Toradol] 10 mg PO Q6HR PRN #15 tab 05/21/23 Rx oxyCODONE-APAP 5-325MG [Percocet 1 tab PO Q6HR PRN 3 Days #12 tab 05/21/23 Rx 5-325 mg] Allergies Allergy/AdvReac Type Severity Reaction Status Date / Time No Known Allergies Allergy Verified 05/15/23 07:46 Physical Exam Vitals: Vital Signs Temp Pulse Resp BP Pulse Ox 05/19/23 10:00 82 99/64 97 05/19/23 09:00 84 12 99/64 96 05/19/23 08:00 98.2 F 79 13 134/81 90 L 05/19/23 07:00 85 20 134/81 97 05/19/23 06:00 88 16 134/81 99 05/19/23 05:00 83 12 134/81 98 05/19/23 04:00 98.8 F 83 15 134/81 100 05/19/23 03:00 90 14 98 05/19/23 02:00 83 13 98 05/19/23 01:00 89 14 97 05/19/23 00:04 95 14 97 05/19/23 00:00 97.9 F 93 15 119/67 97 05/18/23 23:00 92 10 L 05/18/23 22:00 101 H 19 94 L 05/18/23 21:00 103 H 13 96 05/18/23 20:00 98.2 F 96 18 121/76 96 05/18/23 19:00 87 15 121/76 99 05/18/23 18:00 90 15 121/76 97 05/18/23 17:00 98.4 F 89 17 121/76 96 Intake and Output 05/18/23 05/19/23 05/19/23 22:59 06:59 14:59 Intake Total 150 Output Total 975 1400 Balance -825 -1400 Intake: IV 150 0.9 0 Clindamycin 600 mg In 50 Dextrose 5% in Water 50 ml @ 50 mls/hr IVPB Q8HR [facility] Rx#:[id number] Piperacillin-Tazobactam 3 100 .375 gm In Sodium Chloride 0.9% 100 ml @ 25 mls/hr IVPB Q8H [facility] Rx#: [id number] Output: Urine 975 1400 Other: Voiding Method Indwelling Catheter GENERAL DESCRIPTION: Middle-aged male lying in bed, no distress. No tachypnea or accessory muscle of respiration use. HEENT: Shows Pallor , no scleral icterus. Oral mucous membrane is dry. No pharyngeal erythema or thrush NECK: Trachea central, no thyromegaly. LUNGS: Unlabored breathing. Clear to auscultation anteriorly. No wheeze or crackle. HEART: S1, S2, regular rate and rhythm. No loud murmur ABDOMEN: Soft, no tenderness , guarding or rigidity, : Did have some scrotal edema no significant redness or drainage EXTREMITIES: No edema of feet. SKIN: No rash, no masses palpable. NEUROLOGICAL: The patient is awake, alert, oriented x3, mood and affect normal. Results CBC & Chem 7: 05/19/23 08:16 05/19/23 08:16 Labs: Abnormal Lab Results - Last 24 Hours (Table) 05/19/23 05/19/23 Range/Units 08:16 08:16 RBC 3.58 L (4.30-5.90) m/uL Hgb 10.8 L (13.0-17.5) gm/dL Hct 31.8 L (39.0-53.0) % Sodium 132 L (137-145) mmol/L BUN 7 L (9-20) mg/dL Glucose 107 H (74-99) mg/dL Calcium 7.8 L (8.4-10.2) mg/dL Microbiology - Last 24 Hours (Table) 05/15/23 09:30 Anaerobic Culture - Final Scrotum 05/15/23 02:30 Blood Culture - Preliminary Blood 05/15/23 02:15 Blood Culture - Preliminary Blood 05/15/23 09:30 Gram Stain - Final Groin Wound Culture - Final Staphylococcus aureus Assessment and Plan (1) Cellulitis of scrotum Status: Acute Code(s): N49.2 - INFLAMMATORY DISORDERS OF SCROTUM SNOMED Code(s): 21903991 (2) MSSA (methicillin susceptible Staphylococcus aureus) infection Status: Acute Code(s): A49.01 - METHICILLIN SUSCEP STAPH INFECTION, UNSP SITE SNOMED Code(s): 070527409 (3) Sepsis Status: Acute Code(s): A41.9 - SEPSIS, UNSPECIFIED ORGANISM SNOMED Code(s): 10449337 Plan: 1patient was in the hospital with sepsis in this patient who did have a fever tachycardia source is the left scrotal cellulitis s/p surgical debridement culture positive for MSSA blood culture has been negative 2-we will discontinue Zosyn and Zyvox and clindamycin 3-start the patient on cefazolin 2 g every 8 hours Family the bedside question concern answered We will follow on clinical condition and cultures to further adjust medication if needed Thank you for this consultation we will follow the patient along with you Dictation was produced using [employer] dictation software. please excuse any grammatical, word or spelling errors. Time with Patient: Greater than 30
[2023-05-20] MEDS: NAPROXEN 250 MG TAB PO SCH (11:47)
--- NOTE | 2023-05-20 12:03 | P.PN ---
Subjective Progress Note Date: 05/20/23 This is a 37-year-old male patient with no significant medical history. He presented here to the emergency room late last night with complaints of scrotal swelling. He reported a 2 to 3-day history of what he thought was a pimple on his left scrotum attempted to pop it. Since then he had increased swelling pain and developed some fever and chills. Scrotal ultrasound revealed soft tissue infection or cellulitis suspected. No well-formed fluid collection or abscess identified. CT scan of the pelvis revealed abnormal skin thickening and diffuse edema along the inferior aspect of the left scrotum. No thick walled fluid collection or drainable abscess. Left testicle slightly smaller than right. White count 11.2. Hemoglobin 11.1. Sodium 129. Potassium 4.0. Bicarb 10. BUN 7. Creatinine 0.53. Glucose 53. Initial lactic acid 14.5. He received 4- 1/2 L of fluid resuscitation and was initiated on vancomycin and Zosyn. He was seen and evaluated by urology who took the patient to surgery for surgical debridement of the left scrotal wall greater than 10 cm. 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 Following surgery he was taken to the intensive care unit and remained on the mechanical ventilator. Currently on assist-control mode at 18, tidal volume 550, FiO2 100% and a PEEP of 5. Initial blood gases revealed a PaO2 of 214. pCO2 of 41 and a pH of 7.37. His FiO2 was decreased to 60%. He is continued on normal saline at 130 MLS per hour. He is on propofol at 40 mcg/kg/min. He is continued on vancomycin and Zosyn. The patient is seen today May 16, 2023 in follow-up in the intensive care unit. He was successfully extubated yesterday. He is currently awake and alert in no acute distress. He is maintaining good O2 saturations in the upper 90s on 2 L/min per nasal cannula. He is afebrile. Hemodynamically stable. Chest x-ray shows no acute pulmonary process. No evidence of pneumothorax. He has normal saline at 130 MLS per hour. Urology is planning to perform further debridement tomorrow morning. Cultures from the scrotum are revealing presumptive Staph aureus. He is continued on Zyvox, clindamycin and Zosyn. White count 10.0. Hemoglobin 11.0. Platelets 207. Sodium 131. Potassium 4.0. Bicarb 23. BUN 8. Creatinine 0.95. Glucose 103. Uncontrolled with Dilaudid and Toradol. Lovenox for DVT prophylaxis. Pepcid for GI prophylaxis The patient is seen today May 17, 2023 in follow-up in the intensive care unit. He is currently resting comfortably in bed. Awake and alert in no acute distress. He is maintaining good O2 saturations in the 90s on 2 L/min per nasal cannula. Normal saline at 75 MLS per hour. He is continued on antibiotics in the form of clindamycin, Zosyn and Zyvox. Scrotum wound tissue shows presumptive Staph aureus. Sputum culture revealed no growth. White count 6.8. Hemoglobin 10.4. Platelets 210. Sodium 132. Potassium 3.9. Bicarb 25. BUN 6. Creatinine 0.84. Glucose 117. The plan is for a repeat scrotal wall washout, possible debridement and dressing change with urology today. Lovenox for DVT prophylaxis. On today's evaluation of 05/18/2023, the patient is being seen in follow-up. The patient has Ayala's gangrene and the cultures turned out to be positive for S taph aureus, MSSA. The patient is currently on broad-spectrum antibiotics that can be modified. The patient is on currently on a combination of Zyvox, clindamycin and IV Zosyn. Infectious disease on the case. Urology is on the case. The patient's white cell count at 6.4 with a hemoglobin 10.9. Sodium is at 133, BUN is at 6 with a creatinine of 0.8 and potassium level is at 3.9. No signs of encephalopathy at this point in time. The blood cultures have been negative and the wound cultures were essentially positive. The patient is on room air oxygen. He is on normal saline at rate of 75 cc an hour. Moving all 4 extremities. There is a drain in his right groin area which is being managed by urology team. Noted the patient underwent a second surgical exploration with scrotal wound washout and partial wound closure. On today's evaluation of 05/19/2023, the patient has no specific complaints. No significant events overnight. Hemodynamically stable. Afebrile. White cell count at 6.5 and hemoglobin 10.8, BUN is at 7 with a creatinine of 0.9 and sodium is at 132. Antibiotics has been modified to include a combination of clindamycin and IV cefazolin. Cultures were positive for MSSA. Tolerating diet. No altered mentation. No respiratory difficulties. Urology is on the c ase. On 05/20/2023, the patient is transferred out of the intensive care unit. Clinically stable continues on antibiotics. No new complaints.No new labs are available from today. He remains on room air oxygen Objective - Vital Signs Vital signs: Vital Signs Temp 98.2 F 05/20/23 07:52 Pulse 96 05/20/23 07:52 Resp 16 05/20/23 07:35 BP 116/72 05/20/23 07:52 Pulse Ox 98 05/20/23 09:33 FiO2 40 05/15/23 16:15 Intake & Output 05/19/23 05/20/23 05/20/23 18:59 06:59 18:59 Intake Total 100 Output Total 650 Balance -550 Intake: Intake, IV Titration 100 Amount Piperacillin-Tazobactam 3 100 .375 gm In Sodium Chloride 0.9% 100 ml @ 25 mls/hr IVPB Q8H [facility] Rx#: [id number] Output: Urine 650 Other: Voiding Method Indwelling Catheter # Voids 0 2 - Exam GENERAL EXAM: Alert, 37-year-old male patient, resting in bed, fairly comfortable in no apparent distress. The patient is currently on room air oxygen. Communicating. HEAD: Normocephalic. EYES: Normal reaction of pupils, equal size. NOSE: Clear with pink turbinates. THROAT: No erythema or exudates. NECK: No masses, no JVD. CHEST: No chest wall deformity. LUNGS: Equal air entry with no crackles, wheeze, rhonchi or dullness. CVS: S1 and S2 normal with no audible murmur, regular rhythm. ABDOMEN: No hepatosplenomegaly, normal bowel sounds, no guarding or rigidity. SPINE: No scoliosis or deformity SKIN: Scrotal dressing is dry and intact. CENTRAL NERVOUS SYSTEM: No focal deficits, tone is normal in all 4 extremities. EXTREMITIES: There is no peripheral edema. No clubbing, no cyanosis. Peripheral pulses are intact. - Labs CBC & Chem 7: 05/19/23 08:16 05/19/23 08:16 Labs: Microbiology - Last 24 Hours (Table) 05/15/23 09:30 Anaerobic Culture - Final Scrotum Assessment and Plan Plan: Cellulitis/Ayala's gangrene of the left scrotum status post debridement today 05/15/2023. Postoperative day # 5. The patient underwent another scrotal washout and partial closure of the wound on 05/17/2023 and the patient is postop day # 3. Cultures are positive for Staph aureus, MSSA Sepsis secondary to above, improving, currently on no pressors Generalized weakness secondary to sepsis Lactic acidosis secondary to above, improved Plan Clinically stable. The patient is transferred out of the intensive care unit. The patient is currently on IV cefazolin. Rest of the management as per infectious diseases and urology. Pulmonary critical care services will sign off the case.
[2023-05-20] MEDS: oxyCODONE-APAP 5-325MG 1 EACH TAB PO PRN (12:55)
--- NOTE | 2023-05-20 14:21 | P.PN ---
Subjective Progress Note Date: 05/20/23 Principal diagnosis: Left scrotal cellulitis Patient is a 37-year-old male with no significant past medical history presenting to the hospital for evaluation of increasing pain and swelling to the testicle area has been diagnosed with the testicular cellulitis culture positive for MSSA s/p debridement. On today's visit that is 05/20/2023,the patient remains to be afebrile, patient is on room air not requiring supplemental oxygen and denies any shortness of breath no chest pain or cough.Patient denies having any nausea or vomiting, no abdominal pain and no diarrhea pain to the scrotal area has decreased in intensity. No new labs has been obtained today Objective - Vital Signs Vital signs: Vital Signs Temp 98.2 F 05/20/23 07:52 Pulse 96 05/20/23 07:52 Resp 16 05/20/23 07:35 BP 116/72 05/20/23 07:52 Pulse Ox 98 05/20/23 09:33 FiO2 40 05/15/23 16:15 Intake & Output 05/19/23 05/20/23 05/20/23 18:59 06:59 18:59 Intake Total 100 Output Total 650 Balance -550 Intake: Intake, IV Titration 100 Amount Piperacillin-Tazobactam 3 100 .375 gm In Sodium Chloride 0.9% 100 ml @ 25 mls/hr IVPB Q8H [facility] Rx#: [id number] Output: Urine 650 Other: Voiding Method Indwelling Catheter # Voids 0 2 - Exam GENERAL DESCRIPTION: Middle-age male up in the room in no distress RESPIRATORY SYSTEM: Unlabored breathing , decreased breath sounds at bases HEART: S1 S2 regular rate and rhythm , ABDOMEN: Soft , no tenderness Genitourinary : Scrotal swelling has decreased in intensity - Labs CBC & Chem 7: 05/19/23 08:16 05/19/23 08:16 Labs: Microbiology - Last 24 Hours (Table) 05/15/23 02:30 Blood Culture - Final Blood 05/15/23 02:15 Blood Culture - Final Blood 05/15/23 09:30 Anaerobic Culture - Final Scrotum Assessment and Plan (1) MSSA (methicillin susceptible Staphylococcus aureus) infection Current Visit: Yes Status: Acute Code(s): A49.01 - METHICILLIN SUSCEP STAPH INFECTION, UNSP SITE SNOMED Code(s): 667976878 (2) Cellulitis of scrotum Current Visit: Yes Status: Acute Code(s): N49.2 - INFLAMMATORY DISORDERS OF SCROTUM SNOMED Code(s): 02293329 Plan: 1patient was in the hospital with sepsis in this patient who did have a fever tachycardia source is the left scrotal cellulitis s/p surgical debridement culture positive for MSSA blood culture has been negative 2-patient to continue with cefazolin 2 g every 8 hours for another 24 to 48 hours before transition to oral versus consideration for short course of IV antibiotic on discharge Dictation was produced using [employer] dictation software. please excuse any grammatical, word or spelling errors. Time with Patient: Less than 30
--- NOTE | 2023-05-20 14:40 | P.PN ---
Subjective No acute overnight event, wound cultures growing Staph aureus. No fevers or chills Objective - Vital Signs Vital signs: Vital Signs Temp 98.2 F 05/20/23 07:52 Pulse 96 05/20/23 07:52 Resp 16 05/20/23 07:35 BP 116/72 05/20/23 07:52 Pulse Ox 98 05/20/23 09:33 FiO2 40 05/15/23 16:15 Intake & Output 05/19/23 05/20/23 05/20/23 18:59 06:59 18:59 Intake Total 100 Output Total 650 Balance -550 Intake: Intake, IV Titration 100 Amount Piperacillin-Tazobactam 3 100 .375 gm In Sodium Chloride 0.9% 100 ml @ 25 mls/hr IVPB Q8H [facility] Rx#: [id number] Output: Urine 650 Other: Voiding Method Indwelling Catheter # Voids 0 2 - Constitutional General appearance: Present: no acute distress - Gastrointestinal General gastrointestinal: Present: soft. Absent: distended, tenderness - Genitourinary Genitourinary Comment(s): Incision clean, no erythema, or drainage appreciated - Psychiatric Psychiatric: Present: A&O x's 3 - Labs CBC & Chem 7: 05/19/23 08:16 05/19/23 08:16 Labs: Microbiology - Last 24 Hours (Table) 05/15/23 02:30 Blood Culture - Final Blood 05/15/23 02:15 Blood Culture - Final Blood 05/15/23 09:30 Anaerobic Culture - Final Scrotum Assessment and Plan Assessment: This is a 37-year-old male that presented to the hospital with significant left- sided scrotal Ayala's gangrene, on presentation patient was febrile tachycardic and lactate was 14 patient patient was taken emergently to the OR for left scrotal wall debridement 05/15/23, was taken back on May 16 for a washout, and the incision was partially covered. Postoperatively he has impr sheila. Will keep [place] in place along the superior aspect of the incision, the inferior portion of the debridement is packed with iodoform packing. At this point tentatively we will plan on keeping the stitches for 2 weeks and we will plan on removing them as an outpatient. Will allow the remainder the incision to close by secondary intention at this time this was discussed with the patient and his , but will continue to reassess the incision on a daily basis -Daily dressing change -Continue IV antibiotics -Will reassess wound tomorrow
--- NOTE | 2023-05-20 20:35 | P.PN ---
Progress Note - Text Progress Note Date: 05/20/23 Chief Complaint: Scrotal swelling This is a 37-year-old patient, follows Dr. Calos Jackson. Pretty healthy and unremarkable past medical history. Patient presented to the ER with scrotal swelling. He reported to have 2 to 3 days ago what you thought was a pimple on his left scrotum and he attempted to pop it. It gradually became worse and pain swelling and overnight tripled in size. Is also had some complaint of fever and chills. Patient in the ER was given IV fluids IV Zosyn. And IV vancomycin. Patient is moved to the medical floor, where he was more septic. And taken to the OR. Black necrotic tissue along the left scrotum was noted. And the wall was edematous and indurated. It was excised. In the medial aspect of the right scrotal wall was also excised. The penis in the pubic area of the rectum was not involved. Total area resected was 10 x 15 cm. Scrotal wall around the left testicle was removed but testicle was covered with the tunica vaginalis. This was not involved. No involvement of the urethra or peritoneal utricle tissue. Patient was intubated in the OR. Then moved to the ICU. Received 5 L of fluid during the procedure. Currently intubated with FiO2 60 and a PEEP of 5. Patient's mother at the bedside. On IV propofol May 15: ICU. Patient extubated yesterday. Laying in bed. Comfortable. Tolerated diet. Armstrong catheter in place. Family at the bedside. IV Zosyn IV linezolid IV clindamycin. Some pain at the operative site. Due to go back to the OR tomorrow. For closure of wound.. Questions answered. Patient does shave his groin area and testicle. He also was swimming in [place] prior to coming in. Preventive measures discussed. May 16: ICU. Patient was taken back to the OR. Underwent scrotal wound washout and partial wound closure by Dr. Shoemaker. [place] drain was placed. Armstrong remains in place. Discussed with the and updated. She had spoken to Dr. Shoemaker earlier. May 17: ICU. Laying in bed. Allowed to be sitting up in activity as tolerated per urology. Armstrong catheter in place. at the bedside. Decreased intake. Patient advised to increase oral intake. On IV linezolid, Zosyn, clindamycin. Cultures positive for MSSA. Consult ID May 18: Patient seen in the ICU this morning. Eating well. at the bedside. Did ambulate in the hallway. Armstrong catheter discontinued yesterday. Dark brown discharge from the [place] drain. Seen by ID, IV cefazolin started. Other antibiotics discontinued.. May 19: Comfortable. at the bedside. Did ambulate. Was seen by Dr. Shoemaker today. [place] drain to remain in place. Continues on IV cefazolin. Naproxen added for inflammation and pain. Avoid Dilaudid as discussed with patient and . Active Medications Acetaminophen (Acetaminophen Tab 325 Mg Tab) 650 mg PO Q6HR PRN PRN Reason: Mild Pain or Fever > 100.5 Last Admin: 05/20/23 16:56 Dose: 650 mg Artificial Tears (Artificial Tears-Hypromellose Drops 15 Ml Btl) 1 drops BOTH EYES QID PRN PRN Reason: Dry Eye(s) Last Admin: 05/17/23 23:39 Dose: 1 drops Enoxaparin Sodium (Enoxaparin 40 Mg/0.4 Ml Syringe) 40 mg SQ DAILY JUVENAL Last Admin: 05/20/23 08:31 Dose: 40 mg Hydromorphone HCl (Hydromorphone 0.5 Mg/0.5 Ml Syringe) 0.5 mg IVP Q3HR PRN PRN Reason: Moderate Pain (Scale 4 to 6) Last Admin: 05/19/23 16:58 Dose: 0.5 mg Hydromorphone HCl (Hydromorphone 1 Mg/Ml 1 Ml Syringe) 1 mg IVP Q2HR PRN PRN Reason: Severe Pain (Scale 7 to 10) Last Admin: 05/20/23 20:09 Dose: 1 mg Cefazolin Sodium 2 gm/ Sodium (Chloride) 50 mls @ 100 mls/hr IVPB Q8HR JUVENAL; Protocol Last Admin: 05/20/23 15:44 Dose: 100 mls/hr Miscellaneous Information (Potassium Replacement Protocol 1 Each Misc) 1 each MISCELLANE DAILY PRN; Protocol PRN Reason: Per Protocol Naloxone HCl (Naloxone 0.4 Mg/Ml 1 Ml Vial) 0.2 mg IV Q2M PRN PRN Reason: Opioid Reversal Naproxen (Naproxen 250 Mg Tab) 250 mg PO BID JUVENAL Last Admin: 05/20/23 11:47 Dose: 250 mg Ondansetron HCl (Ondansetron 4 Mg/2 Ml Vial) 4 mg IVP Q8HR PRN PRN Reason: Nausea And Vomiting Oxycodone/Acetaminophen (Oxycodone-Apap 5-325mg 1 Each Tab) 1 each PO Q4HR PRN PRN Reason: Pain Last Admin: 05/20/23 12:55 Dose: 1 each Social history: . Does not smoke or drink alcohol. Works as a [employer]. Physical examination: VITAL SIGNS: 98.2, 96, 16, 1 one 6 x 72, 96% room air GENERAL: Laying in bed, comfortable EYES: Pupils equal. Conjunctiva luigi l. HEENT: External appearance of nose and ears normal, oral cavity grossly normal. NECK: JVD not raised; masses not palpable. HEART: First and second heart sounds are normal; no edema. LUNGS: Respiratory rate normal; clear to auscultation. ABDOMEN: Soft, nontender, liver spleen not palpable, no masses palpable. Dressing over the scrotum with the support. Armstrong catheter. PSYCH: AOx3, mood affect normal INVESTIGATIONS, reviewed in the clinical context: May 18: White count 6.5 hemoglobin 10.8 sodium 132 potassium 3.9 creatinine 0.9 Wound culture: Staphylococcus aureus. MSSA May 15, 2023: White count 9.2 hemoglobin 11.1 platelets 194 May 15, 2023: White count 15.4 hemoglobin 14.1 platelets 258 potassium 3.6 creatinine 1.14 lactic acid 1.4 then went up to 14.5 Scrotum ultrasound scrotal soft tissue infection//suspected no obvious fluid filled collection. Pelvic CT: Testicles remain well-defined. Thickening of the left scrotal wall. Chest x-ray film personally reviewed by me-unremarkable Assessment plan: -Acute left scrotal skin necrosis resulting initially from a pimple that was popped by the patient 2 to 3 days prior to presentation. Resulting in necrotic tissue sepsis. Surgical excision of the infected tissue. Wound cultures growing MSSA May 16: Taken back to the OR. Wound washout. Partial closure with [place] drain placed. Antibiotics changed to IV cefazolin. ID following Iodoform packing -Acute respiratory failure requiring ventilator support: Extubated -Lactic acidosis secondary to sepsis -Hyponatremia, mild -Normocytic anemia from acute postoperative blood loss anemia expected from surgery -Acute postprocedure blood loss anemia expected from surgery. Reported of EBL of 200 cc. IV Ferrlecit given Naproxen added. Narcotics discussed. Questions answered. Past Medical History Past Medical History: No Reported History History of Any Multi-Drug Resistant Organisms: None Reported Past Surgical History: No Surgical Hx Reported Past Psychological History: No Psychological Hx Reported Smoking Status: Never smoker Past Alcohol Use History: Occasional Past Drug Use History: None Reported
[2023-05-21 08:05] VITALS: BP 112/73; PULSE 73; RESP 19; TEMP 98.1
[2023-05-21 12:58] VITALS: BMI 33.2
--- NOTE | 2023-05-21 19:23 | P.DS ---
Providers Date of admission: 05/15/23 02:45 Expected date of discharge: 05/21/23 Attending physician: Oumar Purcell Consults: 05/15/23 02:32 Consult Physician Urgent Consulting Provider: Easton Shoemaker Consult Reason/Comments: Scrotal cellulitis Do you want consulting provider notified?: Already Contacted 05/15/23 09:32 Consult Physician Urgent Consulting Provider: Shayne Valentino Consult Reason/Comments: ICU management Do you want consulting provider notified?: Already Contacted 05/18/23 18:44 Consult Physician Routine Consulting Provider: Dorcas Palomino Consult Reason/Comments: Scrotal infection Do you want consulting provider notified?: Yes Primary care physician: [facility] Course: Chief Complaint: Scrotal swelling This is a 37-year-old patient, follows Dr. Calos Jackson. Pretty healthy and unremarkable past medical history. Patient presented to the ER with scrotal swelling. He reported to have 2 to 3 days ago what you thought was a pimple on his left scrotum and he attempted to pop it. It gradually became worse and pain swelling and overnight tripled in size. Is also had some complaint of fever and chills. Patient in the ER was given IV fluids IV Zosyn. And IV vancomycin. Patient is moved to the medical floor, where he was more septic. And taken to the OR. Black necrotic tissue along the left scrotum was noted. And the wall was edematous and indurated. It was excised. In the medial aspect of the right scrotal wall was also excised. The penis in the pubic area of the rectum was no t involved. Total area resected was 10 x 15 cm. Scrotal wall around the left testicle was removed but testicle was covered with the tunica vaginalis. This was not involved. No involvement of the urethra or peritoneal utricle tissue. Patient was intubated in the OR. Then moved to the ICU. Received 5 L of fluid during the procedure. Currently intubated with FiO2 60 and a PEEP of 5. Patient's mother at the bedside. On IV propofol May 15: ICU. Patient extubated yesterday. Laying in bed. Comfortable. Tolerated diet. Armstrong catheter in place. Family at the bedside. IV Zosyn IV linezolid IV clindamycin. Some pain at the operative site. Due to go back to the OR tomorrow. For closure of wound.. Questions answered. Patient does shave his groin area and testicle. He also was swimming in [place] prior to coming in. Preventive measures discussed. May 16: ICU. Patient was taken back to the OR. Underwent scrotal wound washout and partial wound closure by Dr. Shoemaker. Linda drain was placed. Armstrong remains in place. Discussed with the and updated. She had spoken to Dr. Shoemaker earlier. May 17: ICU. Laying in bed. Allowed to be sitting up in activity as tolerated per urology. Armstrong catheter in place. at the bedside. Decreased intake. Patient advised to increase oral intake. On IV linezolid, Zosyn, clindamycin. Cultures positive for MSSA. Consult ID May 18: Patient seen in the ICU this morning. Eating well. at the bedside. Did ambulate in the hallway. Armstrong catheter discontinued yesterday. Dark brown discharge from the [place] drain. Seen by ID, IV cefazolin started. Other antibiotics discontinued.. May 19: Comfortable. at the bedside. Did ambulate. Was seen by Dr. Shoemaker today. Linda drain to remain in place. Continues on IV cefazolin. Naproxen added for inflammation and pain. Avoid Dilaudid as discussed with patient and . May 20: Patient's [place] was taken out. Dr. Shoemaker called me. Healing. Wi ll follow-up in the office. Pain medications discussed. With the patient. Patient completed course of Keflex for 12 days. Patient not to return to work until follow-up with Dr. Shoemaker. Then further decision per Dr. Slade. Questions answered as done with patient and . Discussion and discharge planning more than 35 minutes Social history: . Does not smoke or drink alcohol. Works as a [employer]. Physical examination: VITAL SIGNS: 98.1, 73, 19, 112/73, 98% room air GENERAL: Laying in bed, comfortable EYES: Pupils equal. Conjunctiva luigi l. HEENT: External appearance of nose and ears normal, oral cavity grossly normal. NECK: JVD not raised; masses not palpable. HEART: First and second heart sounds are normal; no edema. LUNGS: Respiratory rate normal; clear to auscultation. ABDOMEN: Soft, nontender, liver spleen not palpable, no masses palpable. Dressing over the scrotum with the support. PSYCH: AOx3, mood affect normal INVESTIGATIONS, reviewed in the clinical context: May 18: White count 6.5 hemoglobin 10.8 sodium 132 potassium 3.9 creatinine 0.9 Wound culture: Staphylococcus aureus. MSSA May 15, 2023: White count 9.2 hemoglobin 11.1 platelets 194 May 15, 2023: White count 15.4 hemoglobin 14.1 platelets 258 potassium 3.6 creatinine 1.14 lactic acid 1.4 then went up to 14.5 Scrotum ultrasound scrotal soft tissue infection//suspected no obvious fluid filled collection. Pelvic CT: Testicles remain well-defined. Thickening of the left scrotal wall. Chest x-ray film personally reviewed by me-unremarkable Assessment plan: -Acute left scrotal skin necrosis resulting initially from a pimple that was popped by the patient 2 to 3 days prior to presentation. Resulting in necrotic tissue sepsis. Surgical excision of the infected tissue. Wound cultures growing MSSA May 16: Taken back to the OR. Wound washout. Partial closure with Linda drain placed. Antibiotics changed to IV cefazolin. ID following Iodoform packing Linda drain removed. Keflex 500 mg every 6 for 12 days. -Acute respiratory failure requiring ventilator support: Extubated -Lactic acidosis secondary to sepsis -Hyponatremia, mild -Normocytic anemia from acute postoperative blood loss anemia expected from surgery -Acute postprocedure blood loss anemia expected from surgery. Reported of EBL of 200 cc. IV Ferrlecit given Disposition: Home Past Medical History Past Medical History: No Reported History History of Any Multi-Drug Resistant Organisms: None Reported Past Surgical History: No Surgical Hx Reported Past Psychological History: No Psychological Hx Reported Smoking Status: Never smoker Past Alcohol Use History: Occasional Past Drug Use History: None Reported Plan - Discharge Summary Discharge Rx Participant: Yes New Discharge Prescriptions: New Ketorolac [Toradol] 10 mg PO Q6HR PRN #15 tab PRN Reason: Pain Cephalexin [Keflex] 500 mg PO Q6HR 12 Days #48 cap oxyCODONE-APAP 5-325MG [Percocet 5-325 mg] 1 tab PO Q6HR PRN 3 Days #12 tab PRN Reason: Pain Acetaminophen Tab [Tylenol] 650 mg PO Q6HR PRN tab PRN Reason: Mild Pain Or Fever > 100.5 Discharge Medication List Acetaminophen Tab [Tylenol] 650 mg PO Q6HR PRN tab 05/21/23 [Rx] Cephalexin [Keflex] 500 mg PO Q6HR 12 Days #48 cap 05/21/23 [Rx] Ketorolac [Toradol] 10 mg PO Q6HR PRN #15 tab 05/21/23 [Rx] oxyCODONE-APAP 5-325MG [Percocet 5-325 mg] 1 tab PO Q6HR PRN 3 Days #12 tab 05/21/23 [Rx] Follow up Appointment(s)/Referral(s): Easton Shoemaker MD [STAFF PHYSICIAN] - 1 Week [facility], [NON-STAFF] - 1-2 Days ([facility] will call you to schedule in home nursing visits to help with wound care. ) Wolf Jackson MD [Primary Care Provider] - 1-2 days Dorcas Palomino MD [STAFF PHYSICIAN] - 1 Week Patient Instructions/Handouts: Cellulitis (GEN) Discharge/Stand Alone Forms: Work/School Release / Restrict Discharge Disposition: HOME SELF-CARE
--- NOTE | 2023-05-22 12:09 | P.PN ---
Subjective Progress Note Date: 05/21/23 Principal diagnosis: Left scrotal cellulitis Patient is a 37-year-old male with no significant past medical history presenting to the hospital for evaluation of increasing pain and swelling to the testicle area has been diagnosed with the testicular cellulitis culture positive for MSSA s/p debridement. On today's visit that is 05/21/2023, the patient continues to be afebrile, the patient is on room air and breathing comfortably, the Pt denies having any chest pain or cough, the patient denies having any abdominal pain no vomiting or any diarrhea pain to the left scrotal area has decreased in intensity. No new diet has been obtained today local culture with MSSA blood culture negative Objective - Vital Signs Vital signs: Vital Signs Temp 98.1 F 05/21/23 07:02 Pulse 73 05/21/23 07:02 Resp 19 05/21/23 07:02 BP 112/73 05/21/23 07:02 Pulse Ox 98 05/21/23 07:02 FiO2 40 05/15/23 16:15 Intake & Output 05/20/23 05/21/23 05/21/23 18:59 06:59 18:59 Intake Total 800 1000 Balance 800 1000 Intake: Intake, IV Titration 50 Amount ceFAZolin 2 gm In Sodium 50 Chloride 0.9% 50 ml @ 100 mls/hr IVPB Q8HR [facility] Rx# :[id number] Oral 750 1000 Other: Voiding Method Indwelling Catheter # Voids 3 2 - Exam GENERAL DESCRIPTION: Middle-age male up in the room in no distress RESPIRATORY SYSTEM: Unlabored breathing , decreased breath sounds at bases HEART: S1 S2 regular rate and rhythm , ABDOMEN: Soft , no tenderness Genitourinary : Left-sided scrotal swelling has decreased in intensity wound with no significant slough tissue - Labs CBC & Chem 7: 05/19/23 08:16 05/19/23 08:16 Labs: Microbiology - Last 24 Hours (Table) 05/15/23 02:30 Blood Culture - Final Blood 05/15/23 02:15 Blood Culture - Final Blood Assessment and Plan (1) MSSA (methicillin susceptible Staphylococcus aureus) infection Status: Acute Code(s): A49.01 - METHICILLIN SUSCEP STAPH INFECTION, UNSP SITE SNOMED Code(s): 026476674 (2) Cellulitis of scrotum Status: Acute Code(s): N49.2 - INFLAMMATORY DISORDERS OF SCROTUM SNOMED Code(s): 21507317 Plan: 1patient was in the hospital with sepsis in this patient who did have a fever tachycardia source is the left scrotal cellulitis s/p surgical debridement culture positive for MSSA blood culture has been negative 2-patient has shown clinical improvement we will finish therapy with oral Keflex prescription has been sent to the pharmacy local wound care switched over to dry Aquacel silver dressing change every 24-48 hours depending upon drainage discussed with the at the bedside who will be doing the dressing changes Dictation was produced using [employer] dictation software. please excuse any grammatical, word or spelling errors. Time with Patient: Less than 30
== END 2023-05-21 13:17 | disposition home or self-care (01) | DRG 853 ==
LOC: EC 22:05 → 4SSUR 05-15 02:45 → 2SICU 05-15 09:09 → 4SSUR 05-19 13:12
PROVIDERS: ADMIT Hospitalist; ATTEND Hospitalist
PROC: 02HV33Z Insertion of Infusion Device into Superior Vena Cava, Percutaneous Approach (ICD-10-PCS; 2023-05-15)
PROC: 0JBC0ZZ Excision of Pelvic Region Subcutaneous Tissue and Fascia, Open Approach (ICD-10-PCS; principal; 2023-05-15 15:15)
PROC: 0JQC0ZZ Repair Pelvic Region Subcutaneous Tissue and Fascia, Open Approach (ICD-10-PCS; 2023-05-17)
DX: A41.9 Sepsis, unspecified organism (principal); J96.01 Acute respiratory failure with hypoxia; D62 Acute posthemorrhagic anemia; E87.1 Hypo-osmolality and hyponatremia; B95.61 Methicillin susceptible Staphylococcus aureus infection as the cause of diseases classified elsewhere; N49.2 Inflammatory disorders of scrotum; N50.89 Other specified disorders of the male genital organs; N49.3 Fournier gangrene
CPT/HCPCS: 36415; 36600; 71045; 72193; 76870; 80048; 80053; 81003; 82805; 83605; 85025; 85610; 86850; 86900; 86901; 87040; 87070; 87075; 87077; 87186; 87205; 93975; 94002; 94760; 96361; 96365; 96366; 96375; 99291